=== PATIENT | female | born 1935 | race Caucasian/White ===

== ENCOUNTER 2023-06-15 06:39 | Day surgery (SDC) | payer OTHER, SELFPAY ==
[2023-06-10 14:38] LABS: APTT 28.2 Sec (23.4-35.0); PT 13.4 Sec (11.4-14.6)
[2023-06-15] VITALS (10 sets, daily range): BP systolic 95–146; BP diastolic 47–77
== END 2023-06-15 16:15 | disposition home or self-care (01) ==
LOC: GI 06:39
PROVIDERS: ATTENDING PHYSICIAN Internal Medicine Critical Care Medicine; FAMILY PHYSICIAN Family Medicine
DX: R91.1 Solitary pulmonary nodule (principal); C34.12 Malignant neoplasm of upper lobe, left bronchus or lung; R59.0 Localized enlarged lymph nodes
CPT/HCPCS: 31629; 31628; 31627; 31624; 31654; 31623; 88173; 88305; 36415; 71045; 76000; 81459; 85610; 85730; 88112; 88333; 88341; 88342; 94640; C1887

== ENCOUNTER 2023-06-22 15:15 | Inpatient (IN) | payer OTHER, SELFPAY ==
[2023-06-22] VITALS (10 sets, daily range): BP systolic 100–145; BP diastolic 44–69
--- NOTE | 2023-06-22 08:54 | ED.GENMED ---
History of Present Illness
General
Chief Complaint: Abdominal Pain
Source: patient and spouse
Exam Limitations: none
Time Seen by Provider: 06/22/23 08:38
Nursing documentation reviewed up to this point in time: agreed with
Travel History
Have you had any contact with someone who has COVID-19?: No
Do you have any symptoms of coronavirus? Fever > 100 degrees, chills, cough, shortness of breath, sore throat, loss of taste or smell, muscle aches, or headache?: No
History of Present Illness
History of Present Illness:
87-year-old female presents emergency department due to nausea vomiting and abdominal cramping since 4 AM. She states she vomited about 5 times. There are no aggravating or alleviating factors. She has also felt lightheaded for a long time. She
denies any headache. She was recently diagnosed with lung cancer.
Past History
Past History
ED Past Medical History: Cancer (skin), GERD, HTN and Other (Osteoarthritis); Negative Hypercholesterolemia, IDDM, NIDDM or SD
ED Past Surgical History: Appendectomy, Cholecystectomy, Gynecological (Hysterectomy) and Orthopedic (Shoulder, knee)
Social History
Tobacco: Non-smoker
Alcohol: None
Drug: None
Personal:
Living: with family
Employment: Retired
Family History
Family History: Cancer (Colon Cancer)
Review of Systems
Review of Systems
Allergies reviewed?: Yes
All Other Systems: Not applicable
Constitutional: Reports no symptoms; Denies fever
EENT: Reports no symptoms
Respiratory: Reports no symptoms
Cardiac: Reports no symptoms; Denies chest pain
ABD/GI: Reports abdominal pain, nausea and vomiting
: Reports no symptoms
Musculoskeletal: Reports no symptoms
Skin: Reports no symptoms
Neurological: Reports no symptoms
Endocrine: Reports no symptoms
Hematologic/Lymphatic: Reports no symptoms
Psychiatric: Reports no symptoms
Phy Exam
Physical Exam
Physical Exam:
Physical Exam
General: Afebrile, appears uncomfortable
Neck: supple. no meningeal signs. normal posterior pharynx
Heart: s1/s2 tachycardia, no murmur. equal radial
pulses.
HEENT: Pupils equal round reactive to light, EOMI
Lungs: no acute respiratory distress. clear bilaterally
Abdomen: normal bowel sounds. Diffuse abdominal tenderness no CVAT
Neuro: alert and oriented. no focal neurological deficits cranial nerves II through XII intact
Skin: no rash
Psychiatric: well kept. interactive and cooperative
Extremities: no edema. no calf tenderness. negative homans. good distal pulses
Course
Orders/Labs/Results
Orders:
Orders
06/22/23 08:50
Cardiac Monitoring- Treatment ONCE
IV Insert/Care/Rem.- Treatment PRN
0.9% Sodium Chloride 1000 ml [Nss] 1,000 ml IV BOLUS
Ondansetron Injectable [Zofran] 4 mg IV NOW STA
06/22/23 08:53
Electrocardiogram (*1) Stat
Reason for Study: Abdominal Pain
CT Abd/Pel (IV only)-DH only Urgent
Comment:
Reason For Exam: Epigastric abdominal pain, nausea vomiting
EKG- Treatment ONCE
06/22/23 09:07
COVID-19 Antigen Urgent
Source: Nasal Swab
Complete Blood Count/With Diff Urgent
Comprehensive Metabolic Panel Urgent
Comment: ADD ON
Direct Bilirubin Urgent
Comment: ADD ON
Lipase Urgent
Influenza A+B Rapid Molecular Urgent
MARI Source: Nasal Swab
Specimen Description:
06/22/23 12:34
CT Head W/o Iv Contrast Urgent
Comment:
Reason For Exam: Dizziness, recent lung cancer diagnosis
06/22/23 13:32
Urinalysis Reflex To Culture Urgent
Date Specimen was Collected: 06/22/23
Time Specimen was Collected: 12:42
Urine Microscopic Reflex Cult Urgent
Urine Culture Urgent
MARI Source: U
Specimen Description:
Date Specimen was Collected: 06/22/23
Time Specimen was Collected: 12:42
06/22/23 14:27
Cefepime HCl [Maxipime] 1,000 mg IV NOW STA
06/22/23 14:43
Add On- LAB Routine
Tests Added?: LFTs
06/22/23 15:01
Admit/Transfer Patient As Directed
Co-Sign Provider:
Level of Care: Inpatient admission
Assign to:: Telemetry
Physician / Group: Alison
Diagnosis: Sepsis, UTI
Reason for Telemetry: Arrhythmia
Date to Stop Telemetry: 06/25/23
Time to Stop Telemetry: 11:00
Reason for Hospitalization: IV antibiotics, IV fluids
Expected length of stay greater than two midnights?: Yes
ELOS- Estimated Length of Stay in days: 3
I certify the patient meets the requirements for IP care: Yes
06/22/23 15:02
Code Status As Directed
Resuscitation Status: Full Code
06/22/23 15:08
0.9% Sodium Chloride 500 ml [Nss] 500 ml IV BOLUS
06/22/23 15:13
Blood Culture Stat
MARI Source: Blood/Venous
Specimen Description:
06/25/23 11:00
DC Protocol for Telemetry ONCE
Abnormal Lab Results
06/22/23 06/22/23
09:07 13:32
WBC 21.4 H 10^3/uL
(4.8-10.8)
RDW 15.1 H %
(11.5-14.5)
Abs Immat Gran (auto) 0.2 H 10^3/uL
(0-0.05)
Absolute Neuts (auto) 19.2 H 10^3/uL
(1.4-6.5)
Absolute Lymphs (auto) 0.5 L 10^3/uL
(1.2-3.4)
Absolute Monos (auto) 1.4 H 10^3/uL
(0.1-0.6)
Immature Gran % 1.0 H %
(0-0.5)
Neutrophils % 89.6 H %
(42.2-75.2)
Lymphocytes % 2.2 L %
(20.5-51.1)
Ur Occult Blood Reflex 3+ A
(Negative)
Urine Nitrite (Reflex) Positive A
(Negative)
Leukocyte Esterase Rfl 1+ A
(Negative)
Urine RBC 80-90 A /HPF
(0-2)
Urine WBC (Reflex) 90-100 A /HPF
(0-5)
Urine Bacteria (Reflex) Many A
(Negative)
06/22/23 09:07
Vital Signs
Initial and Last Documented VS:
Initial Vital Signs
Temp Pulse Resp BP Pulse Ox
97.9 F 112 18 145/66 99
06/22/23 08:35 06/22/23 08:35 06/22/23 08:35 06/22/23 08:35 06/22/23 08:35
Last Documented Vital Signs
Temp Pulse Resp BP Pulse Ox
97.9 F 90 19 100/44 93
06/22/23 08:35 06/22/23 15:15 06/22/23 15:15 06/22/23 15:00 06/22/23 15:15
MDM/Problems Addressed
Differential Diagnosis Includes:
Bowel obstruction, diverticulitis, UTI
MDM/Problems Addressed:
87-year-old female with UTI, nausea vomiting. Leukocytosis. IV cefepime given. Admit to hospitalist
Chronic conditions affecting care: HTN
Acute Exacerbation and/or Progression of Chronic Illness: HTN
*Radiology
Radiology exam reviewed: radiology read reviewed (CT abdomen pelvis shows gastroenteritis)
*Pulse Oximetry
Patient hypoxic: no
*EKG
Interpreted by ED Provider?: NA
EKG Intrepretation Date: 06/22/23
EKG Intrepretation Time: 08:59
Interpretation: abnormal
Comparison EKG: changes noted
Heart Rate: 92
Rate: normal
Rhythm: sinus
[place]: normal axis
Interval: normal interval
QRS Pattern: normal QRS
Ischemia: non-specific ST changes
*Highway Traffic Control Technician Interpretation
Rate: normal
Interpretation: normal
Heart Rate: 95
Rhythm: sinus
*Critical Care Note
Total Time (30-74mins, 75-104mins- exclusive of procedures): Not Applicable
ED Attending Note
-
Portions of this chart may have been created with voice recognition software.� Occasional wrong word or��sound alike� substitutions may have occurred due to the inherent limitations of voice recognition software.
Discharge Plan
Departure
Patient Disposition: Admit
Date of Disposition: 06/22/23
Time of Disposition: 14:26
Admit to: Telemetry
Presentation/result/management discussed w/ accepting MD/DO: Hospitalist
Patient with high blood pressure during this ER visit?: No
Condition: Fair
Discharge Problem:
Vomiting
Interventions
Interventions:
*Risk Screen - Suicide Last Done: 06/22/23 08:35
*General Assessment Last Done: 06/22/23 08:35
*Neglect/Abuse Screening Last Done: 06/22/23 08:35
ED- Fall Risk Assessment Last Done: 06/22/23 09:05
*ED COVID-19 Vaccine History Last Done: 06/22/23 08:35
JO-Jxbvpb-Amtqbtjfio Assessment Last Done: 06/22/23 09:05
[2023-06-22] MEDS: ZOFRAN 4 MG IV (09:07)
[2023-06-22] MEDS: NSS 1000 IV ×3 (09:08→23:59)
[2023-06-22 09:26] LABS: % Basophils 0.3 % (0-2); % Eosinophils 0.5 % (0-6); % Lymphocytes 2.2 % (20.5-51.1); % Monocytes 6.4 % (1.7-9.3); % Neutrophils 89.6 % (42.2-75.2); Absolute Basophils 0.1 10^3/uL (0-0.2); Absolute Eosinophils 0.1 10^3/uL (0-0.7); Absolute Immature Granulocytes 0.2 10^3/uL (0-0.05); Absolute Lymphocytes 0.5 10^3/uL (1.2-3.4); Absolute Monocytes 1.4 10^3/uL (0.1-0.6); Absolute Neutrophils 19.2 10^3/uL (1.4-6.5); Hematocrit 44.8 % (37.0-47.0); Hemoglobin 15.3 g/dL (12.0-16.0); Mean Corp Hgb Conc. 34.2 g/dL (33.0-37.0); Mean Corpuscular Hgb 30.3 pg (27.0-31.0); Mean Corpuscular Volume 88.7 fL (81.0-99.0); Mean Platelet Volume 9.5 fL (7.4-10.4); Nucleated Red Blood Cells % 0 %; Platelet Count 303 10^3/uL (130-400); Red Blood Cell Count 5.05 10^6/uL (4.20-5.40); Red Cell Dist. Width 15.1 % (11.5-14.5); White Blood Cell Count 21.4 10^3/uL (4.8-10.8)
[2023-06-22 09:40] LABS: Lipase 217 U/L (23-300)
[2023-06-22 09:48] LABS: COVID-19 Antigen Negative (Negative)
[2023-06-22 13:43] LABS: Urine Albumin Trace (Neg - Trace); Urine Bilirubin Negative (Negative); Urine Character Clear (Clear); Urine Color Yellow; Urine Glucose Negative (Negative); Urine Ketone Negative (Negative); Urine Leukocyte 1+ (Negative); Urine Nitrite Positive (Negative); Urine Occult Blood 3+ (Negative); Urine Specific Gravity 1.015 (<1.030); Urine Urobilinogen Negative (Neg - 1+)
[2023-06-22 13:54] LABS: Urine Mucus Few
[2023-06-22 13:56] LABS: Urine Red Blood Cell 80-90 /HPF (0-2)
[2023-06-22 13:58] LABS: Urine Bacteria Many (Negative); Urine White Cell 90-100 /HPF (0-5)
[2023-06-22] MEDS: MAXIPIME 1000 MG IV (15:01)
--- NOTE | 2023-06-22 15:08 | HPS.HSE ---
Family Physician
-
Family Physician: Didier Godinez Jr.
Chief Complaint
-
Weakness, abdominal discomfort, dysuria, vomiting
History of Present Illness
87-year-old female who was in her usual state of health up until 4:00 in the morning when she developed acute onset of vomiting and abdominal discomfort. Associated chills but denies fevers.
Also noted dysuria. Denies flank pain.
Medical History
Past Medical History
Past Medical History: Reports Other
Additional Past Medical History:
Essential hypertension
GERD
COPD
Gout
CKD 3B
Squamous cell lung cancer -new diagnosis
Past Surgical History: Reports Cholecystectomy, Gynocological and Orthopedic
Social History
Tobacco: Non-smoker
Alcohol: None
Drug: None
Family History
Family History: Not pertinent
Allergies / Home Medications
Allergies reflects when Allergies were last updated in [employer].
Home Medications with original date entered in [employer]
Allergy/Medication List:
Allergies
Allergy/AdvReac Type Severity Reaction Status Date / Time
Cephalosporins Allergy Hives (Pt Verified 06/22/23 08:37
unsure of
allergy).
Tolerated
cefazolin
2020 admis
penicillin G Allergy Hives Verified 06/22/23 08:37
Home Medications
allopurinol 100 mg tablet 200 mg PO DAILY Gout ##0 05/15/14
folic acid 0.8 mg capsule 0.8 mg PO DAILY Supplement ##0 05/15/14
pantoprazole 40 mg tablet,delayed release 40 mg PO DAILY Gastrointestinal Issue 05/15/14
cholecalciferol (vitamin D3) 125 mcg (5,000 unit) tablet (Vitamin D3) 125 mcg PO DAILY Supplement ##0 08/03/20
desvenlafaxine succinate 50 mg tablet,extended release 24 hr 50 mg PO DAILY Mental Health/Anxiety ##0 08/03/20
Focus-Bd 2 tab PO BID Supplement 05/03/23
amlodipine 2.5 mg tablet 2.5 mg PO DAILY Blood Pressure 05/03/23
calcium carbonate 600 mg calcium (1,500 mg) tablet (Calcium) 1,200 mg PO DAILY Supplement 05/03/23
gabapentin 100 mg capsule 100 mg PO DAILY Pain 05/03/23
atorvastatin 10 mg tablet 10 mg PO QPM 06/22/23
vitamin B complex 1 tab PO DAILY 06/22/23
Review of Systems
-
History Source: Patient and Family
A 12 point ROS was completed and negative except as noted: Yes
Constitutional: Reports Fatigue and Chills
Abdomen/GI: Reports Abdominal Pain, Nausea and Vomiting; Denies Diarrhea
: Reports Dysuria; Denies Flank Pain
Physical Exam
Vital Signs
Vital Signs
Temp Pulse Resp BP Pulse Ox
97.9 F 105 26 106/47 92
06/22/23 08:35 06/22/23 12:30 06/22/23 12:30 06/22/23 12:00 06/22/23 12:30
Physical Exam
General: Well Developed, Well Nourished, No Apparent Distress and Comfortable
HEENT: NormoCephalic, Anicteric and Moist mucous membranes
Respiratory: Clear
Cardiac: S1/S2 and Regular Rhythm
GI: Soft, Non Tender and Non Distended
Genito-urinary: Deferred by me
Musculoskeletal: No Clubbing, No Cyanosis and No Edema
Skin: Warm and Dry
Neuro: AO x 3
Hematologic/Lymphatic: No Lymphadenopathy
Psych: Calm
Laboratory Results
-
06/22/23 09:07
06/22/23 09:07
Laboratory Results
Total Bilirubin Cancelled 06/22/23 09:07
AST Cancelled 06/22/23 09:07
ALT Cancelled 06/22/23 09:07
Alkaline Phosphatase Cancelled 06/22/23 09:07
Lipase 217 U/L (23-300) 06/22/23 09:07
Impression/Plan
-
Sepsis -possibly due to UTI, pyelonephritis. Admit to telemetry, IV fluids, IV antibiotics. Await cultures.
Squamous cell lung cancer -recent diagnosis. Left upper lobe mass noted on CT. Underwent bronchoscopy last week. Follow-up with oncology, Dr. Ferreira. She is scheduled for an outpatient PET scan soon.
Essential hypertension - stable.
Gout -continue allopurinol.
COPD without exacerbation
GERD
CKD 3B -stable.
Hyperlipidemia -continue atorvastatin.
Full code
updated at the bedside
[2023-06-22 16:34] LABS: Blood Urea Nitrogen 24 mg/dl (7-17); Calcium 9.5 mg/dl (8.4-10.2); Carbon Dioxide 24 mmol/L (22-30); Chloride 105 mmol/L (98-107); Estimated Creatinine Clearance 37 ml/min; Glucose 143 mg/dl (70-99); Sodium 137 mmol/L (135-145); eGFR 55.21
[2023-06-22] MEDS: NSS 500 IV (17:01)
[2023-06-22] MEDS: LOVENOX 30 MG SC (17:22)
[2023-06-22] MEDS: LIPITOR 10 MG PO (17:23)
[2023-06-22 17:30] LABS: ALT (SGPT) 15 U/L (0-35); AST (SGOT) 22 U/L (14-36); Albumin 3.4 g/dl (3.5-5.0); Alkaline Phosphatase 70 U/L (38-126); Direct Bilirubin 0.4 mg/dl (0.0-0.4); Total Bilirubin 1.1 mg/dl (0.2-1.3); Total Protein 5.7 g/dl (6.3-8.2)
[2023-06-22] MEDS: Pyridium 100 MG PO (20:26)
[2023-06-22 22:12] LABS: Glucose - Point of Care 104 mg/dl (70-99)
[2023-06-23] VITALS (9 sets, daily range): BP systolic 108–149; BP diastolic 50–73; PULSE 72–83; O2SAT 95
[2023-06-23] MEDS: MAXIPIME 1000 MG IV ×2 (03:46→17:21)
[2023-06-23] MEDS: STERILE WATER FOR INJECTION 10 ML IV ×2 (03:47→17:23)
[2023-06-23] MEDS: FOLVITE 0.800000000000000044 MG PO (07:28)
[2023-06-23] MEDS: ZYLOPRIM 200 MG PO (07:28)
[2023-06-23] MEDS: PROTONIX 40 MG PO (07:28)
[2023-06-23] MEDS: NEURONTIN 100 MG PO (07:28)
[2023-06-23] MEDS: OSCAL CAL 500 1000 MG PO (07:28)
[2023-06-23] MEDS: VITAMIN D3 (cholecalciferol) 125 MCG PO (07:29)
[2023-06-23 08:19] LABS: % Basophils 0.3 % (0-2); % Eosinophils 2.1 % (0-6); % Immature Granulocytes 0.7 % (0-0.5); % Lymphocytes 11.7 % (20.5-51.1); % Monocytes 7.7 % (1.7-9.3); % Neutrophils 77.5 % (42.2-75.2); Absolute Eosinophils 0.3 10^3/uL (0-0.7); Absolute Immature Granulocytes 0.1 10^3/uL (0-0.05); Absolute Lymphocytes 1.4 10^3/uL (1.2-3.4); Absolute Monocytes 0.9 10^3/uL (0.1-0.6); Absolute Neutrophils 9.4 10^3/uL (1.4-6.5); Hematocrit 36.7 % (37.0-47.0); Hemoglobin 12.5 g/dL (12.0-16.0); Mean Corp Hgb Conc. 34.1 g/dL (33.0-37.0); Mean Corpuscular Hgb 30.9 pg (27.0-31.0); Mean Corpuscular Volume 90.8 fL (81.0-99.0); Mean Platelet Volume 9.5 fL (7.4-10.4); Nucleated Red Blood Cells % 0 %; Platelet Count 239 10^3/uL (130-400); Red Blood Cell Count 4.04 10^6/uL (4.20-5.40); Red Cell Dist. Width 15.4 % (11.5-14.5); White Blood Cell Count 12.2 10^3/uL (4.8-10.8)
--- NOTE | 2023-06-23 10:23 | PTOTSP ---
PATIENT ABLE TO FUNCTION INDEPENDENTLY ON LEVEL SURFACES WELL ELEVATIONS. NOTED TO BE SLIGHTLY SHORT OF BREATH WITH MOBILITY WITH ROOM AIR SPO2-93%. PATIENT FEELS IF SHE IS FUNCTIONING AT HER BASELINE. ENCOURAGED PATIENT TO AMBULATE IN
HALLS WHILE HERE TO MAINTAIN MOBILITY. WILL DISCHARGE FROM P.T. SERVICES.
--- NOTE | 2023-06-23 11:49 | W.PN.HOSP.TC ---
Today's Communication/Plan
-
Continue antibiotics
Check orthostatics
Assessment / Plan
Assessment / Plan
Gen-AAOx3, NAD, obese
HEENT-NC, AT, anicteric, clear oral mm
Neck-supple
CV-reg, no M, +S1/S2
Lungs-clear B/L
Abd-soft, NT, ND
Ext-no edema
Musculoskeletal-no cyanosis, clubbing
Skin-warm and dry
Neuro-grossly non-focal
Psych-calm, cooperative
Sepsis -possibly due to UTI, pyelonephritis.� Improving clinically. WBC is coming down. Afebrile. Urine culture shows greater than 100,000 E. coli. Sensitivity pending. Blood culture pending. Continue cefepime for now.
Vertigo -unclear if her symptoms are truly due to vertigo versus lightheadedness. Check orthostatics.
Squamous cell lung cancer -recent diagnosis.� Left upper lobe mass noted on CT.� Underwent bronchoscopy last week.� Follow-up with oncology, Dr. Ferreira.� She is scheduled for an outpatient PET scan soon.
Essential hypertension - stable.
Gout -continue allopurinol.
COPD without exacerbation
GERD
CKD 3B -stable.
Hyperlipidemia -continue atorvastatin.
Full code
Anticipated Discharge: Within 24 hours
Subjective/Interval History
-
Date of Service: June 23, 2023
Patient seen/examined. Feels better today. Complaining of mild vertigo.
Objective Data
-
Labs:
Laboratory Results
06/23/23
07:17
WBC 12.2 H
Hgb 12.5
Hct 36.7 L
Plt Count 239 D
Vital Signs:
Vital Signs
Temp Pulse Resp BP Pulse Ox
97.3 F 68 18 109/57 95
06/23/23 11:00 06/23/23 11:00 06/23/23 11:00 06/23/23 11:00 06/23/23 11:00
I&O
06/22/23 06/23/23 06/24/23
06:59 06:59 06:59
Intake Total 1480 / 1480
Balance 1480 / 1480
Review of Systems
-
History Source: Patient
All other systems: Reviewed and negative
--- NOTE | 2023-06-23 14:23 | CM ---
Reviewed chart, met with patient and her spouse who was at bedside to obtain information for assessment. Patient stated that she lives with her spouse in a two story home, first floor set up, with two steps to enter. She described herself as
independent with all her ADLs, personal care, bathing and dressing but relayed that she is slow with doing these things.
Patient uses a rollator to assist with her ambulation. She has grab bars in the shower as well as a shower chair.
Patient's spouse does all the silk screen cutter, cooking, cleaning and laundry.
Patient has never had VN services. She has not been to a SNF in the past. Patient expressed that she goes to outpatient therapy and is current.
Patient has a prescription plan and uses [facility] in [place] for all of her medications. She stated that her PCP is Dr. Tiki Muniz.
Patient's spouse and patient stated that they feel that patient may need some rehab prior to returning home and if indicated she wants to go to [facility] or [facility].
Reviewed PT/OT however both services signed off stating that patient is at baseline. Patient's spouse stated that he was advised that patient will need SNF however he is unsure from whom he received this information. Will continue to echo
indications made on behalf of medical staff. Will check to determine if patient may be agreeable to VN services.
Plan: Case management will continue to follow and assist with discharge planning. Home vrs home with VN.
[2023-06-23] MEDS: ANTIVERT 12.5 MG PO (17:21)
[2023-06-23] MEDS: LIPITOR 10 MG PO (17:24)
[2023-06-23] MEDS: LOVENOX 30 MG SC (17:24)
[2023-06-23] MEDS: NON-FORMULARY ITEM PO (20:04)
[2023-06-23] MEDS: ZOFRAN 4 MG IV (20:20)
[2023-06-24 03:12] VITALS: BP 111/47
[2023-06-24] MEDS: MAXIPIME 1000 MG IV (04:03)
[2023-06-24] MEDS: STERILE WATER FOR INJECTION 10 ML IV (04:04)
[2023-06-24 07:00] VITALS: BP 144/65
[2023-06-24] MEDS: PROTONIX 40 MG PO (07:20)
[2023-06-24] MEDS: Pyridium 100 MG PO (07:20)
[2023-06-24] MEDS: NEURONTIN 100 MG PO (07:21)
[2023-06-24] MEDS: FOLVITE 0.800000000000000044 MG PO (07:21)
[2023-06-24] MEDS: ZYLOPRIM 200 MG PO (07:21)
[2023-06-24] MEDS: NON-FORMULARY ITEM 50 MG PO (07:21)
[2023-06-24] MEDS: VITAMIN D3 (cholecalciferol) 125 MCG PO (07:21)
[2023-06-24] MEDS: ANTIVERT 12.5 MG PO (07:21)
[2023-06-24] MEDS: OSCAL CAL 500 1000 MG PO (07:21)
[2023-06-24 07:22] LABS: % Basophils 0.4 % (0-2); % Eosinophils 4.7 % (0-6); % Immature Granulocytes 0.5 % (0-0.5); % Lymphocytes 16.6 % (20.5-51.1); % Monocytes 8.9 % (1.7-9.3); % Neutrophils 68.9 % (42.2-75.2); Absolute Eosinophils 0.5 10^3/uL (0-0.7); Absolute Immature Granulocytes 0.1 10^3/uL (0-0.05); Absolute Lymphocytes 1.6 10^3/uL (1.2-3.4); Absolute Monocytes 0.9 10^3/uL (0.1-0.6); Absolute Neutrophils 6.6 10^3/uL (1.4-6.5); Hematocrit 39.6 % (37.0-47.0); Hemoglobin 13.2 g/dL (12.0-16.0); Mean Corp Hgb Conc. 33.3 g/dL (33.0-37.0); Mean Corpuscular Hgb 30.4 pg (27.0-31.0); Mean Corpuscular Volume 91.2 fL (81.0-99.0); Mean Platelet Volume 9.3 fL (7.4-10.4); Nucleated Red Blood Cells % 0 %; Platelet Count 250 10^3/uL (130-400); Red Blood Cell Count 4.34 10^6/uL (4.20-5.40); Red Cell Dist. Width 15.1 % (11.5-14.5); White Blood Cell Count 9.6 10^3/uL (4.8-10.8)
[2023-06-24 11:00] VITALS: BP 130/73
--- NOTE | 2023-06-24 11:14 | W.PN.HOSP.TC ---
Today's Communication/Plan
-
Discharge
Assessment / Plan
Assessment / Plan
Gen-AAOx3, NAD, obese
HEENT-NC, AT, anicteric, clear oral mm
Neck-supple
CV-reg, no M, +S1/S2
Lungs-clear B/L
Abd-soft, NT, ND
Ext-no edema
Musculoskeletal-no cyanosis, clubbing
Skin-warm and dry
Neuro-grossly non-focal
Psych-calm, cooperative
Sepsis -possibly due to UTI, pyelonephritis.� Improving clinically. WBC now normal. Afebrile. Urine culture shows greater than 100,000 E. coli. Blood culture negative so far. Can change to oral antibiotics and discharge this afternoon.
Recommend outpatient follow-up with urology. Discussed with patient.
Vertigo -possibly BPPV. Recommend outpatient vestibular rehab, discussed with patient. Prescription provided. PT to assess prior to discharge. Meclizine as needed.
Squamous cell lung cancer -recent diagnosis.� Left upper lobe mass noted on CT.� Underwent bronchoscopy last week.� Follow-up with oncology, Dr. Ferreira.� She is scheduled for an outpatient PET scan soon.
Essential hypertension - stable.
Gout -continue allopurinol.
COPD without exacerbation
GERD
CKD 3B -stable.
Hyperlipidemia -continue atorvastatin.
Full code
Dispo -anticipate discharge home this afternoon. Outpatient follow-up.
32-minute spent in discharge process.
Anticipated Discharge: Today
Subjective/Interval History
-
Date of Service: June 24, 2023
Patient seen and examined. Complaining of mild vertigo this morning.
Objective Data
-
Labs:
Laboratory Results
06/24/23
06:53
WBC 9.6
Hgb 13.2
Hct 39.6
Plt Count 250
Vital Signs:
Vital Signs
Temp Pulse Resp BP Pulse Ox
97.9 F 67 16 144/65 95
06/24/23 07:00 06/24/23 07:00 06/24/23 07:00 06/24/23 07:00 06/24/23 07:00
I&O
06/23/23 06/24/23 06/25/23
06:59 06:59 06:59
Intake Total 1480 / 1480 1080 / 1080
Balance 1480 / 1480 1080 / 1080
Review of Systems
-
History Source: Patient
All other systems: Reviewed and negative
--- NOTE | 2023-06-24 11:21 | W.DS.TRANS ---
DC Summary - [employer]
-
Discharge Instructions:
Discharge Diagnosis/Procedures Sepsis, UTI, vertigo
Diet Regular
Activity As tolerated
Driving Restrictions As prior to admission
Bathing Restrictions None
Instructions:
Stand-Alone Forms:
Changes to Home Medications: No
Discharge Medications:
DC Medications w/original date entered in [employer]
allopurinol 100 mg tablet 200 mg PO DAILY Gout ##0 05/15/14
folic acid 0.8 mg capsule 0.8 mg PO DAILY Supplement ##0 05/15/14
pantoprazole 40 mg tablet,delayed release 40 mg PO DAILY Gastrointestinal Issue 05/15/14
cholecalciferol (vitamin D3) 125 mcg (5,000 unit) tablet (Vitamin D3) 125 mcg PO DAILY Supplement ##0 08/03/20
desvenlafaxine succinate 50 mg tablet,extended release 24 hr 50 mg PO DAILY Mental Health/Anxiety ##0 08/03/20
Focus-Bd 1 tab PO BID Supplement 05/03/23
amlodipine 2.5 mg tablet 2.5 mg PO DAILY Blood Pressure 05/03/23
calcium carbonate 600 mg calcium (1,500 mg) tablet (Calcium) 1,200 mg PO DAILY Supplement 05/03/23
gabapentin 100 mg capsule 100 mg PO DAILY Pain 05/03/23
atorvastatin 10 mg tablet 10 mg PO QPM 06/22/23
vitamin B complex 1 tab PO DAILY Supplement 06/22/23
cefadroxil 1 gram tablet 1,000 mg PO BID 10 days #20 tabs 06/24/23
meclizine 12.5 mg tablet 12.5 mg PO Q8HPRN PRN vertigo #20 tabs 06/24/23
phenazopyridine 100 mg tablet 100 mg PO TIDPRN PRN pain with urination #15 tabs 06/24/23
Home Medication Changes
Pending Results: No
--- NOTE | 2023-06-24 14:55 | CM ---
Reviewed chart, met with patient to obtain information for assessment. Patient [place]. Patient stated that she lives in a single townhouse with three steps to enter with her spouse. She described herself as independent with all her ADLs, personal care,
dressing, bathing, toileting and ambulates without the use of an assistive device. She does have a walker that she obtained after TKR but does not need it.
Patient denied any DME in her home.
She drives and can get her appointments and does her own shopping.
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
She goes to outpatient therapy and transports herself. She has had VN in the past through but is not current. She has also been to [facility] in the past.
Patient stated that she does not feel that she will have any needs at the time of discharge and will be able to return home no needs.
Plan: Case managment will continue to follow and assist with discharge planning. Patient would like to return home when medically cleared for discharge. Will watch for needs.
== END 2023-06-24 14:59 | disposition home or self-care (01) | DRG 872 ==
LOC: 3 WEST ACU 15:15
PROVIDERS: ADMITTING PHYSICIAN Hospitalist; EMERGENCY PHYSICIAN Emergency Medicine; FAMILY PHYSICIAN Family Medicine
DX: A41.51 Sepsis due to Escherichia coli [E. coli] (principal); C34.90 Malignant neoplasm of unspecified part of unspecified bronchus or lung; N39.0 Urinary tract infection, site not specified; N18.32 Chronic kidney disease, stage 3b; I12.9 Hypertensive chronic kidney disease with stage 1 through stage 4 chronic kidney disease, or unspecified chronic kidney disease; E78.5 Hyperlipidemia, unspecified; H81.10 Benign paroxysmal vertigo, unspecified ear; K21.9 Gastro-esophageal reflux disease without esophagitis; M19.90 Unspecified osteoarthritis, unspecified site; J44.9 Chronic obstructive pulmonary disease, unspecified; M10.9 Gout, unspecified; Z85.828 Personal history of other malignant neoplasm of skin; Z11.52 Encounter for screening for COVID-19; Z90.49 Acquired absence of other specified parts of digestive tract; Z90.710 Acquired absence of both cervix and uterus; Z88.1 Allergy status to other antibiotic agents; Z88.0 Allergy status to penicillin
CPT/HCPCS: 70450; 74177; 80048; 80076; 81003; 81015; 82962; 83690; 85025; 87040; 87086; 87088; 87186; 87502; 87811; 93005; 96361; 96374; 96375; 97161; 97162; 97165; 99285; Q9967

== ENCOUNTER → 2023-07-01 10:05 | Outpatient (REF) | payer OTHER, SELFPAY | LOC: PET 10:05 | PROVIDERS: ATTENDING PHYSICIAN Internal Medicine Critical Care Medicine | DX: C34.12 Malignant neoplasm of upper lobe, left bronchus or lung (principal) | CPT/HCPCS: 78815; A9552 ==

== ENCOUNTER → 2023-07-14 07:17 | Outpatient (REF) | payer OTHER, SELFPAY | LOC: MRI 07:17 | PROVIDERS: ATTENDING PHYSICIAN Internal Medicine Hematology & Oncology; FAMILY PHYSICIAN Family Medicine | DX: C34.12 Malignant neoplasm of upper lobe, left bronchus or lung (principal) | CPT/HCPCS: 70553; A9575 ==

== ENCOUNTER 2023-10-16 06:09 | Day surgery (SDC) | payer OTHER, SELFPAY ==
[2023-10-16 07:44] VITALS: BMI 27.7
[2023-10-16 07:53] VITALS: BP 146/75
[2023-10-16 07:54] VITALS: BMI 27.7
[2023-10-16 10:45] VITALS: BP 117/49
[2023-10-16 11:00] VITALS: BP 122/67
[2023-10-16 11:15] VITALS: BP 132/55
== END 2023-10-16 11:32 | disposition home or self-care (01) ==
LOC: GI 06:09
PROVIDERS: ATTENDING PHYSICIAN Internal Medicine Gastroenterology
DX: Z12.11 Encounter for screening for malignant neoplasm of colon (principal); D12.5 Benign neoplasm of sigmoid colon; K57.30 Diverticulosis of large intestine without perforation or abscess without bleeding; K64.0 First degree hemorrhoids; Z86.010 Personal history of colon polyps; Z98.890 Other specified postprocedural states
CPT/HCPCS: 45390; 88305

== ENCOUNTER → 2023-12-07 11:36 | Outpatient (REF) | payer OTHER, SELFPAY | LOC: HWRAD 11:36 | PROVIDERS: ATTENDING PHYSICIAN Internal Medicine Hematology & Oncology; FAMILY PHYSICIAN Family Medicine | DX: C34.12 Malignant neoplasm of upper lobe, left bronchus or lung (principal) | CPT/HCPCS: 71260; Q9967 ==

== ENCOUNTER → 2024-04-01 13:50 | Outpatient (REF) | payer OTHER, SELFPAY | LOC: RAD 13:50 | PROVIDERS: ATTENDING PHYSICIAN Family Medicine | DX: E78.00 Pure hypercholesterolemia, unspecified (principal); M62.89 Other specified disorders of muscle | CPT/HCPCS: 93922; 93925 ==

== ENCOUNTER 2024-04-02 13:23 | Emergency (ER) | payer OTHER, SELFPAY ==
[2024-04-02] VITALS (10 sets, daily range): BP systolic 108–155; BP diastolic 52–82; PULSE 84–92; BMI 32.3
[2024-04-02 14:04] LABS: % Basophils 0.5 % (0-2); % Eosinophils 1.9 % (0-6); % Immature Granulocytes 0.6 % (0-0.5); % Lymphocytes 13.1 % (20.5-51.1); % Monocytes 9.3 % (1.7-9.3); % Neutrophils 74.6 % (42.2-75.2); Absolute Basophils 0.1 10^3/uL (0-0.2); Absolute Eosinophils 0.2 10^3/uL (0-0.7); Absolute Immature Granulocytes 0.1 10^3/uL (0-0.05); Absolute Lymphocytes 1.3 10^3/uL (1.2-3.4); Absolute Monocytes 0.9 10^3/uL (0.1-0.6); Absolute Neutrophils 7.5 10^3/uL (1.4-6.5); Hematocrit 43.5 % (37.0-47.0); Hemoglobin 14.6 g/dL (12.0-16.0); Mean Corp Hgb Conc. 33.6 g/dL (33.0-37.0); Mean Corpuscular Hgb 30.4 pg (27.0-31.0); Mean Corpuscular Volume 90.6 fL (81.0-99.0); Mean Platelet Volume 9.3 fL (7.4-10.4); Nucleated Red Blood Cells % 0 %; Platelet Count 265 10^3/uL (130-400); Red Cell Dist. Width 14.2 % (11.5-14.5); White Blood Cell Count 10.1 10^3/uL (4.8-10.8)
[2024-04-02 14:15] LABS: ALT (SGPT) 21 U/L (0-35); AST (SGOT) 30 U/L (14-36); Albumin 4.5 g/dl (3.5-5.0); Alkaline Phosphatase 73 U/L (38-126); Blood Urea Nitrogen 30 mg/dl (7-17); Calcium 10.1 mg/dl (8.4-10.2); Carbon Dioxide 27 mmol/L (22-30); Chloride 99 mmol/L (98-107); Estimated Creatinine Clearance 35 ml/min; Glucose 99 mg/dl (70-99); Potassium 3.7 mmol/L (3.5-5.1); Sodium 139 mmol/L (135-145); Total Bilirubin 0.9 mg/dl (0.2-1.3); Total Protein 6.9 g/dl (6.3-8.2); eGFR 48.94
[2024-04-02 14:27] LABS: Troponin I < 0.012 ng/ml
[2024-04-02 17:49] LABS: Troponin I < 0.012 ng/ml
--- NOTE | 2024-04-02 17:59 | ED.GENMED ---
History of Present Illness
General
Chief Complaint: Weakness
Source: patient and spouse
Exam Limitations: none
Time Seen by Provider: 04/02/24 13:52
History of Present Illness
History of Present Illness:
This an 88-year-old female presents after she profoundly became weak. The patient states that this has been ongoing for several weeks. Patient states today it seemed a little worse. She did get an outpatient ultrasound of her legs recently also.
Patient now feels better. She states she is very active and that this occurs when she is walking. She denies any associated chest pain or shortness of breath. No palpitations. Currently feels better but just overall little bit weak.
Past History
Past History
ED Past Medical History: Cancer (skin), GERD, HTN and Other (Osteoarthritis); Negative Hypercholesterolemia, IDDM, NIDDM or NC
ED Past Surgical History: Appendectomy, Cholecystectomy, Gynecological (Hysterectomy) and Orthopedic (Shoulder, knee)
Social History
Tobacco: Non-smoker
Alcohol: None
Drug: None
Personal:
Living: with family
Employment: Retired
Family History
Family History: Cancer (Colon Cancer)
Phy Exam
Physical Exam
Physical Exam:
CONSTITUTIONAL Patient alert and oriented to person, place and time. Well-appearing. Vital signs reviewed.
HEAD atraumatic, normocephalic.
EYES eyelids normal to inspection, Extraocular muscles intact, Conjunctiva normal, Sclera normal.
NECK normal range of motion, Trachea midline, no jugular venous distention.
RESPIRATORY CHEST No respiratory distress noted, Chest expansion equal, Bilateral breath sounds clear.
CARDIOVASCULAR regular rate and rhythm, systolic ejection murmur.
ABDOMEN abdomen nontender, Bowel sounds normal. No distention.
BACK normal inspection, no obvious deformities
UPPER EXTREMITY range of motion normal, Motor strength normal, no cyanosis, no edema.
LOWER EXTREMITY range of motion normal, Motor strength normal, no cyanosis, no edema. Feet are warm and well-perfused. She does have spider veins to her feet bilaterally but no cyanosis
NEURO Speech normal, No focal motor deficits, [place] coma scale 15, Memory normal, Cranial Nerves intact to screening exam.
SKIN skin warm, dry, and normal in color.
Course
Orders/Labs/Results
Orders:
Orders
04/02/24 13:24
EKG [Electrocardiogram (*1)] Urgent
Reason for Study: Fatigue / Weakness
04/02/24 13:25
EKG- Treatment ONCE
04/02/24 13:54
CMP [Comprehensive Metabolic Panel] Urgent
Complete Blood Count/With Diff Urgent
Troponin I Urgent
04/02/24 14:12
Electrocardiogram (*1) Stat
Reason for Study: Other
Other Reason for Exam: chest pain
EKG- Treatment ONCE
04/02/24 14:27
Orthostatic VS- Treatment ONCE
04/02/24 17:21
Troponin I Urgent
Abnormal Lab Results
04/02/24
13:54
Abs Immat Gran (auto) 0.1 H 10^3/uL
(0-0.05)
Absolute Neuts (auto) 7.5 H 10^3/uL
(1.4-6.5)
Absolute Monos (auto) 0.9 H 10^3/uL
(0.1-0.6)
Immature Gran % 0.6 H %
(0-0.5)
Lymphocytes % 13.1 L %
(20.5-51.1)
BUN 30 H mg/dl
(7-17)
Creatinine 1.1 H mg/dL
(0.6-1.0)
04/02/24 13:54
04/02/24 13:54
Vital Signs
Initial and Last Documented VS:
Initial Vital Signs
Temp Pulse Resp BP Pulse Ox
98.4 F 74 18 155/67 95
04/02/24 13:30 04/02/24 13:30 04/02/24 13:30 04/02/24 13:30 04/02/24 13:30
Last Documented Vital Signs
Temp Pulse Resp BP Pulse Ox
98.4 F 69 10 129/52 92
04/02/24 13:30 04/02/24 16:45 04/02/24 16:45 04/02/24 16:00 04/02/24 14:39
MDM/Problems Addressed
Differential Diagnosis Includes:
Valvulopathy, ACS, dehydration, electrolyte imbalance, stroke
MDM/Problems Addressed:
Weakness
*Pulse Oximetry
Patient hypoxic: no
*EKG
Interpreted by ED Provider?: Yes
Interpretation: abnormal
Rate: normal
Rhythm: sinus
[place]: normal axis
Ischemia: no ischemia
*[employer] [address] [employer] [address] Interpretation
Rate: normal
Interpretation: normal
Rhythm: sinus
*Critical Care Note
Total Time (30-74mins, 75-104mins- exclusive of procedures): Not Applicable
Data Reviewed
Source: patient and spouse
Further Testing Considered But Not Given:
Consider CTA but patient with no hypoxia or chest pain
Patient Management
Escalation/DeEscalation of care consider admission/obs:
Patient appears well. May need follow-up with PCP. She does have a murmur and may need further workup. Patient states she has had a murmur. Certainly aortic stenosis is possible. Okay for discharge for outpatient follow-up. Otherwise
well-appearing and feels better
ED Attending Note
-
Portions of this chart may have been created with voice recognition software.� Occasional wrong word or��sound alike� substitutions may have occurred due to the inherent limitations of voice recognition software.
Discharge Plan
Departure
Patient Disposition: Home (Routine Discharge)
Date of Disposition: 04/02/24
Time of Disposition: 17:59
Patient with high blood pressure during this ER visit?: No
Discharge Problem:
Weakness
Instructions: Generalized Weakness (DC)
Prescriptions:
No Action
allopurinol 100 mg Tablet
200 mg PO DAILY Qty: 0
pantoprazole 40 MG tablet,delayed release (DR/EC)
40 mg PO DAILY
folic acid 0.8 mg Capsule
0.8 mg PO DAILY Qty: 0
desvenlafaxine succinate 50 mg Tablet Extended Release 24 Hr
50 mg PO DAILY Qty: 0
cholecalciferol (vitamin D3) [Vitamin D3] 125 mcg (5,000 unit) Tablet
125 mcg PO DAILY Qty: 0
amlodipine 2.5 mg tablet
2.5 mg PO DAILY
calcium carbonate [Calcium 600] 600 mg calcium (1,500 mg) Tablet
1,200 mg PO DAILY
Focus-Bd
1 tab PO DAILY
potassium chloride [Klor-Con] 20 mEq Packet
20 meq PO BID
furosemide 80 mg Tablet
80 mg PO DAILY
Sutab 1.479-0.188- 0.225 gram Tablet
0 tab PO PER PKG DIR
atorvastatin 10 mg Tablet
10 mg PO QPM
vitamin B complex Tablet
1 tab PO DAILY
Referrals:
Didier Godinez Jr., [Family Provider] -
Activity Restrictions/Additional Instructions:
Please follow-up with your doctor in the next 3 to 5 days. Return immediately for worsening symptoms, chest pain, shortness of breath, palpitations, fevers or any other concerns. Please take 81 mg of aspirin daily.
Interventions
Interventions:
*Risk Screen - Suicide Last Done: 04/02/24 13:30
*General Assessment Last Done: 04/02/24 13:30
*Neglect/Abuse Screening Last Done: 04/02/24 13:30
ED- Fall Risk Assessment Last Done: 04/02/24 14:21
*ED COVID-19 Vaccine History Last Done: 04/02/24 13:43
ED- Cardiac Assessment Last Done: 04/02/24 13:43
ED- Neurological Assessment Last Done: 04/02/24 13:43
ED- Pulmonary Assessment Last Done: 04/02/24 13:43
Discharge Date and Time
Print Language: KITTITIAN
== END 2024-04-02 18:22 | disposition home or self-care (01) ==
LOC: EMR 13:23
PROVIDERS: EMERGENCY PHYSICIAN Emergency Medicine; FAMILY PHYSICIAN Family Medicine
DX: R53.1 Weakness (principal); K21.9 Gastro-esophageal reflux disease without esophagitis; I10 Essential (primary) hypertension; Z85.828 Personal history of other malignant neoplasm of skin; Z90.49 Acquired absence of other specified parts of digestive tract; Z90.710 Acquired absence of both cervix and uterus; Z80.0 Family history of malignant neoplasm of digestive organs
CPT/HCPCS: 99284; 80053; 84484; 85025; 93005

== ENCOUNTER → 2024-04-11 13:51 | Outpatient (REF) | payer OTHER, SELFPAY | LOC: HWRCS 13:51 | PROVIDERS: ATTENDING PHYSICIAN Nurse Practitioner Adult Health | DX: R01.1 Cardiac murmur, unspecified (principal) | CPT/HCPCS: 93306 ==

== ENCOUNTER → 2024-06-13 14:10 | Outpatient (REF) | payer OTHER, SELFPAY | LOC: HWWDC 14:10 | PROVIDERS: ATTENDING PHYSICIAN Family Medicine | DX: Z12.31 Encounter for screening mammogram for malignant neoplasm of breast (principal) | CPT/HCPCS: 77063; 77067 ==

== ENCOUNTER → 2024-06-16 14:18 | Outpatient (REF) | payer OTHER, SELFPAY | LOC: RAD 14:18 | PROVIDERS: ATTENDING PHYSICIAN Internal Medicine Hematology & Oncology; FAMILY PHYSICIAN Family Medicine | DX: C34.12 Malignant neoplasm of upper lobe, left bronchus or lung (principal) | CPT/HCPCS: 71260; Q9967 ==

== ENCOUNTER 2024-06-17 14:58 | Outpatient (RCR) | payer OTHER, SELFPAY | END 2024-06-17 23:59 | disposition home or self-care (01) | LOC: CRHB 14:58 | PROVIDERS: ATTENDING PHYSICIAN Surgery Vascular Surgery | DX: I70.213 Atherosclerosis of native arteries of extremities with intermittent claudication, bilateral legs (principal) | CPT/HCPCS: 93668 ==

== ENCOUNTER 2024-06-29 15:06 | Outpatient (RCR) | payer OTHER, SELFPAY | END 2024-06-29 23:59 | disposition home or self-care (01) | LOC: CRHB 15:06 | PROVIDERS: ATTENDING PHYSICIAN Surgery Vascular Surgery | DX: I70.213 Atherosclerosis of native arteries of extremities with intermittent claudication, bilateral legs (principal) | CPT/HCPCS: 93668 ==

== ENCOUNTER → 2024-08-04 16:30 | Outpatient (REF) | payer OTHER, SELFPAY | LOC: RAD 16:30 | PROVIDERS: ATTENDING PHYSICIAN Surgery Vascular Surgery; FAMILY PHYSICIAN Family Medicine | DX: I73.9 Peripheral vascular disease, unspecified (principal) | CPT/HCPCS: 75635; Q9967 ==

== ENCOUNTER → 2024-08-17 11:38 | Outpatient (REF) | payer OTHER, SELFPAY | LOC: HWRAD 11:38 | PROVIDERS: ATTENDING PHYSICIAN Internal Medicine Critical Care Medicine; FAMILY PHYSICIAN Family Medicine | DX: R91.1 Solitary pulmonary nodule (principal) | CPT/HCPCS: 71250 ==

== ENCOUNTER 2024-08-31 06:33 | Day surgery (SDC) | payer OTHER, SELFPAY ==
[2024-08-25 11:59] LABS: INR 0.92; PT 12.9 Sec (11.4-14.6)
[2024-08-25 12:00] LABS: APTT 28.4 Sec (23.4-35.0)
[2024-08-25 14:21] VITALS: BMI 28.1
[2024-08-31] VITALS (8 sets, daily range): BP systolic 92–140; BP diastolic 54–69; BMI 28.0
== END 2024-08-31 10:18 | disposition home or self-care (01) ==
LOC: GI 06:33
PROVIDERS: ATTENDING PHYSICIAN Internal Medicine Critical Care Medicine; FAMILY PHYSICIAN Family Medicine
DX: R91.8 Other nonspecific abnormal finding of lung field (principal); C34.12 Malignant neoplasm of upper lobe, left bronchus or lung
CPT/HCPCS: 31625; 31624; 31623; 31627; 31654; 88173; 88305; 36415; 71045; 76000; 85610; 85730; 87015; 87070; 87102; 87116; 87205; 88112; 88341; 88342; 93005; 94640; C1887

== ENCOUNTER → 2024-09-06 16:31 | Outpatient (REF) | payer OTHER, SELFPAY | LOC: RAD 16:31 | PROVIDERS: ATTENDING PHYSICIAN Internal Medicine Critical Care Medicine; FAMILY PHYSICIAN Family Medicine | DX: R07.89 Other chest pain (principal) | CPT/HCPCS: 71046 ==

== ENCOUNTER 2024-10-21 11:22 | Emergency (ER) | payer OTHER, SELFPAY ==
[2024-10-21 11:25] VITALS: BP 153/81
[2024-10-21 13:28] VITALS: BMI 27.2
[2024-10-21 13:57] LABS: % Basophils 0.2 % (0-2); % Immature Granulocytes 0.5 % (0-0.5); % Lymphocytes 5.5 % (20.5-51.1); % Monocytes 0.7 % (1.7-9.3); % Neutrophils 93.1 % (42.2-75.2); Absolute Immature Granulocytes 0.1 10^3/uL (0-0.05); Absolute Lymphocytes 0.5 10^3/uL (1.2-3.4); Absolute Monocytes 0.1 10^3/uL (0.1-0.6); Absolute Neutrophils 8.7 10^3/uL (1.4-6.5); Hematocrit 43.6 % (37.0-47.0); Hemoglobin 14.7 g/dL (12.0-16.0); Mean Corp Hgb Conc. 33.7 g/dL (33.0-37.0); Mean Corpuscular Hgb 28.9 pg (27.0-31.0); Mean Corpuscular Volume 85.7 fL (81.0-99.0); Mean Platelet Volume 9.2 fL (7.4-10.4); Nucleated Red Blood Cells % 0 %; Platelet Count 325 10^3/uL (130-400); Red Blood Cell Count 5.09 10^6/uL (4.20-5.40); Red Cell Dist. Width 14.9 % (11.5-14.5); White Blood Cell Count 9.4 10^3/uL (4.8-10.8)
--- NOTE | 2024-10-21 14:00 | EDRN ---
Pt will be moved to room #[address] w/ report given to Khalida GIBSON at this time.
[2024-10-21 14:16] LABS: Blood Urea Nitrogen 36 mg/dl (7-17); Calcium 9.8 mg/dl (8.4-10.2); Carbon Dioxide 30 mmol/L (22-30); Chloride 100 mmol/L (98-107); Estimated Creatinine Clearance 38 ml/min; Glucose 126 mg/dl (70-99); Magnesium 2.2 mg/dl (1.6-2.3); Potassium 4.9 mmol/L (3.5-5.1); Sodium 138 mmol/L (135-145); eGFR > 60.00
--- NOTE | 2024-10-21 14:16 | ED.GENMED ---
History of Present Illness
<Dean Mahoney PA-C - Last Filed: 10/22/24 12:55>
General
Chief Complaint: Visual Problem
Source: patient and records
Time Seen by Provider: 10/21/24 12:57
History of Present Illness
History of Present Illness:
89-year-old female with past medical history of lung cancer (last chemotherapy treatment was last Thursday), hypertension, hyperlipidemia presenting to the emergency department for evaluation of visual disturbance stating she started noticed a change
in her vision about 3 days ago, reports that her oncologist started her on a prednisone regimen for the visual issues but reports that the vision became acutely worse this morning prompting her to come to the ER. Patient states she has a history of
macular degeneration and already poor vision but states the focus in her vision started to get a little less sharp earlier in the week and today is to the point where she really cannot see anything at all. Patient states that she is still able to
see colors and shapes but is having a difficult time reading anything that is in front of her. She denies any headaches, vomiting, fevers or infectious symptoms, neck pain or stiffness. No anticoagulant use. No other concerns.
Past History
<Dean Mahoney PA-C - Last Filed: 10/22/24 12:55>
Past History
ED Past Medical History: Cancer (skin), GERD, HTN and Other (Osteoarthritis); Negative Hypercholesterolemia, IDDM, NIDDM or IN
ED Past Surgical History: Appendectomy, Cholecystectomy, Gynecological (Hysterectomy) and Orthopedic (Shoulder, knee)
Social History
Tobacco: Non-smoker
Alcohol: None
Drug: None
Personal:
Living: with family
Employment: Retired
Family History
Family History: Cancer (Colon Cancer)
Review of Systems
<Dean Mahoney PA-C - Last Filed: 10/22/24 12:55>
Review of Systems
All Other Systems: ROS reviewed and negative except as documented in HPI and ROS
Phy Exam
<Dean Mahoney PA-C - Last Filed: 10/22/24 12:55>
Physical Exam
Physical Exam:
GENERAL: Alert , in no apparent distress
HEAD: NCAT
EYE: pupils equal and reactive, 3mm bilateral, unable to appreciate papilledema. Gross vision: Patient unable to see fingers or objects placed centrally with 1 eye covered, able to make out some of the fingers held in front of her but laterally
seems to have more difficulty seeing objects. No entrapment, no proptosis
NECK: Supple, no midline tenderness, no meningismus
ENT: o/p clr, mmm.
CARDIAC: Regular rate and rhythm .
LUNGS: Clear breath sounds bilaterally, no acute respiratory distress, no wheezes/rales/rhonchi
NEUROLOGICAL: Alert and oriented
SKIN: Warm and dry, skin intact.
MUSCULOSKELETAL: No edema, well perfused.
PSYCH: Normal and appropriate interaction.
Scores
<Dean Mahoney PA-C - Last Filed: 10/22/24 12:55>
Heart Failure Risk
Heart Failure Risk Score: Not Applicable
Heart Score for Chest Pain Patients
STEMI patient?: Not applicable
Withdrawal Assessment of Alcohol
Withdrawal Assessment Completed?: Not applicable
Course
<Dean Mahoney PA-C - Last Filed: 10/22/24 12:55>
Orders/Labs/Results
Orders:
Orders
10/21/24 13:12
CT Head W/o Iv Contrast Urgent
Comment:
Reason For Exam: visual disturbance
10/21/24 13:13
Electrocardiogram (*1) Urgent
Reason for Study: TIA/Stroke
EKG- Treatment ONCE
10/21/24 13:41
Basic Metabolic Panel Urgent
Complete Blood Count/With Diff Urgent
Creatinine Urgent
Comment: ADD ON
Frmln-Bwog-Csvskyd Urgent
Comment: ADD ON
Magnesium Urgent
TSH Reflex To Free T4 Urgent
10/21/24 13:45
Add On- LAB Urgent
Comments:: tube in lab
Tests Added?: liver panel, creat, BUN
Abnormal Lab Results
10/21/24
13:41
RDW 14.9 H %
(11.5-14.5)
Abs Immat Gran (auto) 0.1 H 10^3/uL
(0-0.05)
Absolute Neuts (auto) 8.7 H 10^3/uL
(1.4-6.5)
Absolute Lymphs (auto) 0.5 L 10^3/uL
(1.2-3.4)
Neutrophils % 93.1 H %
(42.2-75.2)
Lymphocytes % 5.5 L %
(20.5-51.1)
Monocytes % 0.7 L %
(1.7-9.3)
BUN 36 H mg/dl
(7-17)
Glucose 126 H mg/dl
(70-99)
AST 40 H U/L
(14-36)
ALT 39 H U/L
(0-35)
10/21/24 13:41
10/21/24 13:41
Vital Signs
Initial and Last Documented VS:
Initial Vital Signs
Temp Pulse Resp BP Pulse Ox
98.2 F 81 16 153/81 97
10/21/24 11:25 10/21/24 11:25 10/21/24 11:10/21/24 11:10/21/24 11:25
Last Documented Vital Signs
Temp Pulse Resp BP Pulse Ox
98.2 F 81 16 153/81 97
10/21/24 11:10/21/24 11:10/21/24 11:10/21/24 11:10/21/24 15:16
<Rodger Mauricio PA-C - Last Filed: 10/21/24 17:32>
Orders/Labs/Results
Orders:
Orders
10/21/24 13:12
CT Head W/o Iv Contrast Urgent
Comment:
Reason For Exam: visual disturbance
10/21/24 13:13
Electrocardiogram (*1) Urgent
Reason for Study: TIA/Stroke
EKG- Treatment ONCE
10/21/24 13:41
Basic Metabolic Panel Urgent
Complete Blood Count/With Diff Urgent
Creatinine Urgent
Comment: ADD ON
Bmegw-Seqa-Fjagvdp Urgent
Comment: ADD ON
Magnesium Urgent
TSH Reflex To Free T4 Urgent
10/21/24 13:45
Add On- LAB Urgent
Comments:: tube in lab
Tests Added?: liver panel, creat, BUN
Abnormal Lab Results
10/21/24
13:41
RDW 14.9 H %
(11.5-14.5)
Abs Immat Gran (auto) 0.1 H 10^3/uL
(0-0.05)
Absolute Neuts (auto) 8.7 H 10^3/uL
(1.4-6.5)
Absolute Lymphs (auto) 0.5 L 10^3/uL
(1.2-3.4)
Neutrophils % 93.1 H %
(42.2-75.2)
Lymphocytes % 5.5 L %
(20.5-51.1)
Monocytes % 0.7 L %
(1.7-9.3)
BUN 36 H mg/dl
(7-17)
Glucose 126 H mg/dl
(70-99)
AST 40 H U/L
(14-36)
ALT 39 H U/L
(0-35)
10/21/24 13:41
10/21/24 13:41
Vital Signs
Initial and Last Documented VS:
Initial Vital Signs
Temp Pulse Resp BP Pulse Ox
98.2 F 81 16 153/81 97
10/21/24 11:25 10/21/24 11:25 10/21/24 11:25 10/21/24 11:25 10/21/24 11:25
Last Documented Vital Signs
Temp Pulse Resp BP Pulse Ox
98.2 F 81 16 153/81 97
10/21/24 11:25 10/21/24 11:25 10/21/24 11:25 10/21/24 11:25 10/21/24 15:16
<Dean Mahoney PA-C - Last Filed: 10/22/24 12:55>
MDM/Problems Addressed
Differential Diagnosis Includes:
Malignancy/metastases, intracranial bleeding, stroke, seizure, retinal detachment, progression of macular degeneration
MDM/Problems Addressed:
89-year-old female presenting to the ER for evaluation of visual disturbance that has been gradually worsening over the last 3 days. Unclear as to why patient was started on prednisone but she reports that her oncologist put her on this due to
potential side effects from her cancer treatment regimen. Patient appears to have a bitemporal hemianopsia on my exam. Stat head CT ordered. Labs ordered. Will discuss with neurology for further disposition planning/workup.
<Dean Mahoney PA-C - Last Filed: 10/22/24 12:55>
*Pulse Oximetry
Patient hypoxic: no
Data Reviewed
Review of Other/Old Records Reveals: Labs, Records and Testing
Source: patient and records
<Rodger Mauricio PA-C - Last Filed: 10/21/24 17:32>
*Critical Care Note
Total Time (30-74mins, 75-104mins- exclusive of procedures): Not Applicable
<Rodger Mauricio PA-C - Last Filed: 10/21/24 17:32>
Update Note
Update Note:
Patient signed out to me pending neurology evaluation. Neurology into see the patient. Per their evaluation no further need for any testing or imaging. Stable to go home with follow-up.
ED Attending Note
<Dean Mahoney PA-C - Last Filed: 10/22/24 12:55>
-
Portions of this chart may have been created with voice recognition software.� Occasional wrong word or��sound alike� substitutions may have occurred due to the inherent limitations of voice recognition software.
Discharge Plan
Departure
Patient Disposition: Home (Routine Discharge)
Date of Disposition: 10/21/24
Time of Disposition: 17:32
Patient with high blood pressure during this ER visit?: No
Discharge Problem:
Vision changes
Instructions: Double Vision (DC)
Prescriptions:
No Action
pantoprazole 40 MG tablet,delayed release (DR/EC)
40 mg PO DAILY
desvenlafaxine succinate 50 mg Tablet Extended Release 24 Hr
50 mg PO DAILY Qty: 0
amlodipine 2.5 mg tablet
2.5 mg PO DAILY
potassium chloride [Klor-Con] 20 mEq Packet
20 meq PO BID
furosemide 80 mg Tablet
80 mg PO DAILY
allopurinol 100 mg Tablet
200 mg PO DAILY
cyanocobalamin (vitamin B-12) 1,000 mcg Tablet
1,000 mcg PO DAILY
calcium carbonate-vitamin D3 [Calcium + D] 600 mg-5 mcg (200 unit) Tablet
1 tab PO BID
simvastatin 20 mg Tablet
20 mg PO DAILY
Prolia 60 mg/mL Syringe
60 mg SC [id number]
PreserVision AREDS 2,148 mcg-113 mg-45 mg-17.4mg Tablet
2 tab PO DAILY
Multivitamin Women 50 Plus 8 mg iron-400 mcg-50 mcg Tablet
1 tab PO DAILY
cholecalciferol (vitamin D3) [Vitamin D3] 125 mcg (5,000 unit) Tablet
250 mcg PO DAILY
prednisone 10 mg Tablet
40 mg PO DIRECTED
Rx Instructions:
40mg daily for 3 days then 30mg daily for 3 day then 20mg daily for 2 day then 10mg daily for 2 day
dexamethasone 4 mg Tablet
4 mg PO DIRECTED
Rx Instructions:
take before and after chemo treatment
Referrals:
Didier oGdinez Jr., DO [Family Provider, Internal Medicine]
Activity Restrictions/Additional Instructions:
Please return here for worsening symptoms otherwise follow-up with your doctor
Interventions
Interventions:
*Risk Screen - Suicide Last Done: 10/21/24 11:25
*General Assessment Last Done: 10/21/24 13:27
*Neglect/Abuse Screening Last Done: 10/21/24 11:25
*ED- Fall Risk Assessment Last Done: 10/21/24 13:27
*ED COVID-19 Vaccine History Last Done: 10/21/24 13:27
*Nursing Disposition Last Done: 10/21/24 17:55
ED- Neurological Assessment Last Done: 10/21/24 14:06
ED-EENT Assessment Last Done: 10/21/24 16:12
Discharge Date and Time
Discharge Date/Time: 10/21/24 17:55
Print Language: SWAZI
[2024-10-21 14:32] LABS: ALT (SGPT) 39 U/L (0-35); AST (SGOT) 40 U/L (14-36); Albumin 4.7 g/dl (3.5-5.0); Alkaline Phosphatase 67 U/L (38-126); Direct Bilirubin 0.2 mg/dl (0.0-0.4); Total Protein 7.5 g/dl (6.3-8.2)
[2024-10-21 15:57] LABS: TSH Reflex To Free T4 1.26 uIU/ml (0.47-4.68)
--- NOTE | 2024-10-21 17:24 | CON.NEURO ---
Neuro Assessment/Plan
Assessment
acute blurry vision, now improved. exam with no deficits and she looks great for her age. I have no reason to believe that this is anything other than a known side effect of checkpoint inhibitors and she should continue prednisone, and be discharged
without further workup. no need for MRI/MRA
Consultation
Order
Date of Consultation: 10/21/24
Requesting Provider: Dean Mahoney
Reason for Consult: blurry vision
Subjective/Objective
Subjective Data
Date of Service: October 21, 2024
from ED notes
89-year-old female with past medical history of lung cancer (last chemotherapy treatment was last Thursday), hypertension, hyperlipidemia presenting to the emergency department for evaluation of visual disturbance stating she started noticed a change
in her vision about 3 days ago, reports that her oncologist started her on a prednisone regimen for the visual issues but reports that the vision became acutely worse this morning prompting her to come to the ER. Patient states she has a history of
macular degeneration and already poor vision but states the focus in her vision started to get a little less sharp earlier in the week and today is to the point where she really cannot see anything at all. Patient states that she is still able to
see colors and shapes but is having a difficult time reading anything that is in front of her. She denies any headaches, vomiting, fevers or infectious symptoms, neck pain or stiffness. No anticoagulant use. No other concerns.
Seen this afternoon, patient is able to read/use her phone which is set in black and white, but not sure if it's all the way back to normal until she goes home and takes the vision test on her computer.
Objective Data
Vital Signs
Temp Pulse Resp BP Pulse Ox
36.8 C 81 16 153/81 97
10/21/24 11:25 10/21/24 11:25 10/21/24 11:25 10/21/24 11:25 10/21/24 15:16
Lab Results
10/21/24 13:41
10/21/24 13:41
Sodium 138 mmol/L (135-145) 10/21/24 13:41
Potassium 4.9 mmol/L (3.5-5.1) 10/21/24 13:41
BUN 36 mg/dl (7-17) H 10/21/24 13:41
Glucose 126 mg/dl (70-99) H 10/21/24 13:41
Calcium 9.8 mg/dl (8.4-10.2) 10/21/24 13:41
Patient Allergies
Cephalosporins Allergy (Verified 10/21/24 11:25)
Pharmacy to Review
penicillin G Allergy (Verified 10/21/24 11:25)
Hives
Physical Exam
-
AAOx3, speech clear, language intact
VFF, EOMI, loss of smooth pursuit, face symmetric
full strength b/l UE/LE
mild age appropriate vibratory loss fingers/ankles
FNF intact
Medications
-
Home Medications
�Medication �Instructions �Recorded
pantoprazole 40 mg tablet,delayed 40 mg PO DAILY Gastrointestinal 05/15/14
release Issue
desvenlafaxine succinate 50 mg 50 mg PO DAILY Mental 08/03/20
tablet,extended release 24 hr Health/Anxiety ##0
amlodipine 2.5 mg tablet 2.5 mg PO DAILY Blood Pressure 05/03/23
furosemide 80 mg tablet 80 mg PO DAILY 10/16/23
potassium chloride 20 mEq oral 20 meq PO BID 10/16/23
packet (Klor-Con)
allopurinol 100 mg tablet 200 mg PO DAILY 08/29/24
calcium 600 mg (as 1 tab PO BID 08/29/24
carbonate)-vitamin D3 5 mcg (200
unit) tablet
cholecalciferol (vitamin D3) 125 250 mcg PO DAILY 08/29/24
mcg (5,000 unit) tablet (Vitamin
D3)
cyanocobalamin (vitamin B-12) 1,000 mcg PO DAILY 08/29/24
1,000 mcg tablet
denosumab 60 mg/mL subcutaneous 60 mg SC [id number] 08/29/24
syringe (Prolia)
[id number] 8 mg-folic 400 1 tab PO DAILY 08/29/24
mcg-K 50 mcg-lutein 300 mcg tablet
(Multivitamin Women 50 Plus)
simvastatin 20 mg tablet 20 mg PO DAILY 08/29/24
vitamins A,C,B-tcpf-vymkmx 2,148 2 tab PO DAILY 08/29/24
mcg-113 mg-45 mg-17.4 mg tablet
(PreserVision AREDS)
dexamethasone 4 mg tablet 4 mg PO DIRECTED 10/21/24
prednisone 10 mg tablet 40 mg PO DIRECTED 10/21/24
== END 2024-10-21 17:55 | disposition home or self-care (01) ==
LOC: EMR 11:22
PROVIDERS: Physician Assistant Medical; EMERGENCY PHYSICIAN Emergency Medicine; FAMILY PHYSICIAN Family Medicine; OTHER PHYSICIAN Internal Medicine
DX: H53.8 Other visual disturbances (principal); C34.90 Malignant neoplasm of unspecified part of unspecified bronchus or lung; I10 Essential (primary) hypertension; Z88.0 Allergy status to penicillin; Z88.1 Allergy status to other antibiotic agents
CPT/HCPCS: 99284; 70450; 80048; 80076; 82565; 83735; 84443; 85025; 93005

== ENCOUNTER 2025-01-09 09:52 | Emergency (ER) | payer OTHER, SELFPAY ==
[2025-01-09] VITALS (8 sets, daily range): BP systolic 100–133; BP diastolic 48–66; BMI 25.7
--- NOTE | 2025-01-09 11:10 | ED.GENMED ---
History of Present Illness
General
Chief Complaint: Urinary Symptoms
Source: patient
Exam Limitations: none
Time Seen by Provider: 01/09/25 11:08
Nursing documentation reviewed up to this point in time: agreed with
History of Present Illness
History of Present Illness:
89-year-old female with history of HTN, HLD, GERD, depression lung CA s/p radiation and now getting Immunotherapy, presents for symptoms attributed to a bladder infection diagnosed on Thursday by her family physician, Dr. Copeland who did U/A in
office. The patient was experiencing pain in her lower abdomen, similar to her previous UTI's prompting her visit to the physicians office. She denies having burning sensation or increased frequency of urination. Denies pain at this time. She has
been feeling extremely fatigued and 'I keep shaking' past 2 days. Denies n/v/diarrhea.
Past History
Past History
ED Past Medical History: Cancer (skin), GERD, HTN and Other (Osteoarthritis); Negative Hypercholesterolemia, IDDM, NIDDM or MA
ED Past Surgical History: Appendectomy, Cholecystectomy, Gynecological (Hysterectomy) and Orthopedic (Shoulder, knee)
Social History
Tobacco: Non-smoker
Alcohol: None
Drug: None
Personal:
Living: with family
Employment: Retired
Family History
Family History: Cancer (Colon Cancer)
Review of Systems
Review of Systems
Allergies reviewed?: Yes
All Other Systems: ROS reviewed and negative except as documented in HPI and ROS
Constitutional: Reports chills; Denies fever
Respiratory: Denies trouble breathing
Cardiac: Denies chest pain
ABD/GI: Reports abdominal pain (past 2 days, denies at this time); Denies nausea, vomiting, diarrhea or anorexia
: Denies dysuria, frequency, flank pain, difficulty voiding or urgency
Musculoskeletal: Denies edema
Phy Exam
Physical Exam
Physical Exam:
GENERAL: No acute distress. A&Ox3.
CONSTITUTIONAL: Afebrile.
EYES: clear, conjunctivae normal
ENMT: Dry mucus membranes, Pharynx nl
RESPIRATORY: Regular respirations, nonlabored, lungs clear.
CARDIOVASCULAR: Regular rate and rhythm, no murmurs, no rubs.
GI: Soft, nontender, normal BS
MUSCULOSKELETAL: Moves with ease. Well perfused.
SKIN: Warm, dry, pale
PSYCH: Normal mood and affect. Well kept, interactive and appropriate
NEUROLOGIC: Awake, alert and oriented. No focal neurological deficits
Course
Orders/Labs/Results
Orders:
Orders
01/09/25 11:26
0.9% Sodium Chloride 500 ml [Nss] 500 ml IV BOLUS
01/09/25 11:35
Basic Metabolic Panel Urgent
Complete Blood Count/With Diff Urgent
TSH Reflex To Free T4 Urgent
Comment: ADD ON
01/09/25 11:45
Add On- LAB Urgent
Tests Added?: TSH reflex T4
01/09/25 14:06
Straight cath- Treatment ONCE
01/09/25 14:23
Urinalysis Reflex To Culture Urgent
Date Specimen was Collected: 01/09/25
Time Specimen was Collected: 11:28
01/09/25 15:55
Blood Culture Q30M
MARI Source: Blood/Venous
Specimen Description:
01/09/25 16:19
Blood Culture Q30M
MARI Source: Blood/Venous
Specimen Description:
Abnormal Lab Results
01/09/25
11:35
WBC 11.8 H 10^3/uL
(4.8-10.8)
RBC 3.92 L 10^6/uL
(4.20-5.40)
Hgb 11.4 L g/dL
(12.0-16.0)
Hct 34.3 L %
(37.0-47.0)
RDW 16.5 H %
(11.5-14.5)
Abs Immat Gran (auto) 0.1 H 10^3/uL
(0-0.05)
Absolute Neuts (auto) 10.6 H 10^3/uL
(1.4-6.5)
Absolute Lymphs (auto) 0.4 L 10^3/uL
(1.2-3.4)
Neutrophils % 90.3 H %
(42.2-75.2)
Lymphocytes % 3.7 L %
(20.5-51.1)
BUN 25 H mg/dl
(7-17)
01/09/25 11:35
01/09/25 11:35
Vital Signs
Initial and Last Documented VS:
Initial Vital Signs
Temp Pulse Resp BP Pulse Ox
98.5 F 91 18 133/63 97
01/09/25 09:55 01/09/25 09:55 01/09/25 09:55 01/09/25 09:55 01/09/25 09:55
Last Documented Vital Signs
Temp Pulse Resp BP Pulse Ox
98.6 F 70 16 115/55 92
01/09/25 14:31 01/09/25 14:31 01/09/25 14:31 01/09/25 15:00 01/09/25 15:15
MDM/Problems Addressed
Differential Diagnosis Includes:
UTI, dehydration chemotherapy related side effects, hypoglycemia
MDM/Problems Addressed:
89-year-old female with history of HTN, HLD, GERD, depression lung CA s/p radiation and now getting Immunotherapy, presents for symptoms attributed to a bladder infection diagnosed on Thursday by her family physician, Dr. Copeland who did U/A in
office. The patient was experiencing pain in her lower abdomen, similar to her previous UTI's prompting her visit to the physicians office. She denies having burning sensation or increased frequency of urination. Denies pain at this time. She has
been feeling extremely fatigued and 'I keep shaking' past 2 days. Denies n/v/diarrhea.
CBC, CMP noted,
UA negative
Patient is receiving immunotherapy for her cancer, her fatigue may be related to that
With patient being on immunotherapy, her urine testing positive in the office yesterday for infection, mild leukocytosis, I will obtain blood cultures and have her continue her antibiotic
Patient is stable for discharge.
*Pulse Oximetry
SaO2: 97
Oxygen Mode of Delivery: Room air
Patient hypoxic: no
*Critical Care Note
Total Time (30-74mins, 75-104mins- exclusive of procedures): Not Applicable
ED Attending Note
-
Portions of this chart may have been created with voice recognition software.� Occasional wrong word or��sound alike� substitutions may have occurred due to the inherent limitations of voice recognition software.
Discharge Plan
Departure
Patient Disposition: Home (Routine Discharge)
Date of Disposition: 01/09/25
Time of Disposition: 15:28
Patient with high blood pressure during this ER visit?: No
Condition: Good
Discharge Problem:
Fatigue
Instructions: Fatigue - ED (DC)
Prescriptions:
No Action
pantoprazole 40 MG tablet,delayed release (DR/EC)
40 mg PO DAILY
desvenlafaxine succinate 50 mg Tablet Extended Release 24 Hr
50 mg PO DAILY Qty: 0
amlodipine 2.5 mg tablet
2.5 mg PO DAILY
potassium chloride [Klor-Con] 20 mEq Packet
20 meq PO BID
furosemide 80 mg Tablet
80 mg PO DAILY
allopurinol 100 mg Tablet
200 mg PO DAILY
cyanocobalamin (vitamin B-12) 1,000 mcg Tablet
1,000 mcg PO DAILY
calcium carbonate-vitamin D3 [Calcium + D] 600 mg-5 mcg (200 unit) Tablet
1 tab PO BID
simvastatin 20 mg Tablet
20 mg PO DAILY
Prolia 60 mg/mL Syringe
60 mg SC [id number]
PreserVision AREDS 2,148 mcg-113 mg-45 mg-17.4mg Tablet
2 tab PO DAILY
Multivitamin Women 50 Plus 8 mg iron-400 mcg-50 mcg Tablet
1 tab PO DAILY
cholecalciferol (vitamin D3) [Vitamin D3] 125 mcg (5,000 unit) Tablet
250 mcg PO DAILY
dexamethasone 4 mg Tablet
4 mg PO DIRECTED
Rx Instructions:
take before and after chemo treatment
Referrals:
Didier Godinez Jr., DO [Family Provider, Internal Medicine] - Keep scheduled appt
Activity Restrictions/Additional Instructions:
As we discussed, your workup here today shows nothing worrisome.
Your urine is clear
Because you are immunocompromised, your urine tested positive for infection yesterday, continue your antibiotic until finished
Because you had chills and you are receiving chemotherapy, we karla blood cultures, we will call you if they come back positive (you will have to return here for antibiotics if they are positive)
Return here immediately for fever, worsening chills, vomiting or feeling sicker in any way.
Interventions
Interventions:
*Risk Screen - Suicide Last Done: 01/09/25 09:55
*General Assessment Last Done: 01/09/25 11:39
*Neglect/Abuse Screening Last Done: 01/09/25 09:55
*ED- Fall Risk Assessment Last Done: 01/09/25 11:39
*ED COVID-19 Vaccine History Last Done: 01/09/25 11:39
*Nursing Disposition Last Done: 01/09/25 15:58
ED-Female Genitourinary Assessment Last Done: 01/09/25 11:39
Discharge Date and Time
Discharge Date/Time: 01/09/25 16:22
Print Language: IRISH
[2025-01-09] MEDS: NSS 500 IV (11:42)
[2025-01-09 11:50] LABS: Hematocrit 34.3 % (37.0-47.0); Hemoglobin 11.4 g/dL (12.0-16.0); Mean Corp Hgb Conc. 33.2 g/dL (33.0-37.0); Mean Corpuscular Volume 87.5 fL (81.0-99.0); Nucleated Red Blood Cells % 0 %; Platelet Count 325 10^3/uL (130-400); Red Cell Dist. Width 16.5 % (11.5-14.5)
[2025-01-09 12:07] LABS: Blood Urea Nitrogen 25 mg/dl (7-17); Calcium 9.5 mg/dl (8.4-10.2); Carbon Dioxide 25 mmol/L (22-30); Chloride 107 mmol/L (98-107); Estimated Creatinine Clearance 33 ml/min; Glucose 96 mg/dl (70-99); Sodium 136 mmol/L (135-145); eGFR > 60.00
[2025-01-09 14:51] LABS: Urine Character Clear (Clear)
== END 2025-01-09 16:22 | disposition home or self-care (01) ==
LOC: EMR 09:52
PROVIDERS: Registered Nurse; EMERGENCY PHYSICIAN Emergency Medicine; FAMILY PHYSICIAN Family Medicine
DX: R10.30 Lower abdominal pain, unspecified (principal); R53.83 Other fatigue; I10 Essential (primary) hypertension; E78.5 Hyperlipidemia, unspecified; C34.90 Malignant neoplasm of unspecified part of unspecified bronchus or lung; Z92.3 Personal history of irradiation; Z85.828 Personal history of other malignant neoplasm of skin; Z79.60 Long term (current) use of unspecified immunomodulators and immunosuppressants
CPT/HCPCS: 96360; 99284; 80048; 81003; 84443; 85025; 87040

== ENCOUNTER 2025-01-09 18:16 | Emergency (ER) | payer OTHER, SELFPAY ==
[2025-01-09 18:19] VITALS: BP 98/61
[2025-01-09 18:56] LABS: COVID-19 Antigen Negative (Negative)
[2025-01-09 21:30] VITALS: BP 124/56
[2025-01-09 22:00] VITALS: BP 126/54
[2025-01-09] MEDS: NSS 500 IV (22:23)
[2025-01-09 23:16] VITALS: BP 117/49
[2025-01-10] VITALS: BP 109/53
--- NOTE | 2025-01-10 00:33 | ED.GENMED ---
History of Present Illness
General
Chief Complaint: Weakness
Source: patient and spouse
Exam Limitations: none
Time Seen by Provider: 01/09/25 21:51
History of Present Illness
History of Present Illness:
Patient was seen earlier this afternoon. Workup at that time was unremarkable. She is being treated for UTI. She is unsure the antibiotic. Upon returning home she felt very weak and dizzy getting out of the car.
Past History
Past History
ED Past Medical History: Cancer (skin), GERD, HTN and Other (Osteoarthritis); Negative Hypercholesterolemia, IDDM, NIDDM or CA
ED Past Surgical History: Appendectomy, Cholecystectomy, Gynecological (Hysterectomy) and Orthopedic (Shoulder, knee)
Social History
Tobacco: Non-smoker
Alcohol: None
Drug: None
Personal:
Living: with family
Employment: Retired
Family History
Family History: Cancer (Colon Cancer)
Phy Exam
Physical Exam
Physical Exam:
GENERAL: Alert and oriented in no apparent distress
EYE: Orbits normal.
NECK: Supple
CARDIAC: Regular rate and rhythm without any obvious murmurs.
LUNGS: Clear breath sounds,normal
ABDOMEN: Soft, without focal tenderness or distention. No CVA tenderness
NEUROLOGICAL: Alert and oriented , grossly non-focal
SKIN: Warm and dry, no rash or lesion, no discoloration, skin intact.
MUSCULOSKELETAL: No edema,no deformity.Good color
PSYCH: Normal and appropriate interaction.
Course
Orders/Labs/Results
Orders:
Orders
01/09/25 18:26
Electrocardiogram (*1) Urgent
Reason for Study: Fatigue / Weakness
EKG- Treatment ONCE
01/09/25 18:27
COVID-19 Antigen Urgent
Source: Nasal Swab
Influenza A+B Rapid Molecular Urgent
MARI Source: Nasal Swab
Specimen Description:
01/09/25 22:07
IV Insert/Care/Rem.- Treatment PRN
01/09/25 22:08
CT Abd/Pel (IV only)-DH only Urgent
Comment:
Reason For Exam: Shaking chills/UTI symptoms.
0.9% Sodium Chloride 500 ml [Nss] 500 ml IV BOLUS
01/09/25 22:09
Electrocardiogram (*1) Stat
Reason for Study: Other
Other Reason for Exam: chest pain
Cardiac Monitoring- Treatment ONCE
EKG- Treatment ONCE
01/09/25 22:24
Blood Culture Q30M
MARI Source: Blood/Venous
Specimen Description:
01/09/25 23:08
Blood Culture Q30M
MARI Source: Blood/Venous
Specimen Description:
Vital Signs
Initial and Last Documented VS:
Initial Vital Signs
Temp Pulse Resp BP Pulse Ox
97.8 F 79 16 98/61 95
01/09/25 18:19 01/09/25 18:19 01/09/25 18:19 01/09/25 18:19 01/09/25 18:19
Last Documented Vital Signs
Temp Pulse Resp BP Pulse Ox
98 F 91 14 109/53 93
01/09/25 23:08 01/10/25 00:15 01/10/25 00:15 01/10/25 00:00 01/10/25 00:37
*Radiology
Radiology exam reviewed: radiology read reviewed (No acute findings on CT. Small loculated left pleural effusion)
*Pulse Oximetry
SaO2: 93
Oxygen Mode of Delivery: Room air
Patient hypoxic: no
*EKG
Interpreted by ED Provider?: Yes
Interpretation: abnormal
Heart Rate: 78
Rate: normal
Rhythm: sinus
[place]: normal axis
Interval: normal interval
QRS Pattern: normal QRS
Ischemia: no ischemia
*Critical Care Note
Total Time (30-74mins, 75-104mins- exclusive of procedures): Not Applicable
Update Note
Update Note:
Patient rechecked. In no distress. Stable EKG. Stable vital signs. Ambulated well without issues. Clinical symptoms described are infectious issues with chills over the weekend. She could have a partially treated UTI with the antibiotics
however doubt pyelonephritis or other acute issue. Offered admission for observation although reasonable for continued outpatient observation patient is comfortable going home. Patient had a slight drop in hemoglobin but not describing any acute
GI symptoms.
ED Attending Note
-
Portions of this chart may have been created with voice recognition software.� Occasional wrong word or��sound alike� substitutions may have occurred due to the inherent limitations of voice recognition software.
Discharge Plan
Departure
Patient Disposition: Home (Routine Discharge)
Date of Disposition: 01/10/25
Time of Disposition: 00:34
Patient with high blood pressure during this ER visit?: No
Discharge Problem:
General weakness, recent UTI
Instructions: Generalized Weakness (DC)
Prescriptions:
No Action
pantoprazole 40 MG tablet,delayed release (DR/EC)
40 mg PO DAILY
desvenlafaxine succinate 50 mg Tablet Extended Release 24 Hr
50 mg PO DAILY Qty: 0
amlodipine 2.5 mg tablet
2.5 mg PO DAILY
potassium chloride [Klor-Con] 20 mEq Packet
20 meq PO BID
furosemide 80 mg Tablet
80 mg PO DAILY
allopurinol 100 mg Tablet
200 mg PO DAILY
cyanocobalamin (vitamin B-12) 1,000 mcg Tablet
1,000 mcg PO DAILY
calcium carbonate-vitamin D3 [Calcium + D] 600 mg-5 mcg (200 unit) Tablet
1 tab PO BID
simvastatin 20 mg Tablet
20 mg PO DAILY
Prolia 60 mg/mL Syringe
60 mg SC [id number]
PreserVision AREDS 2,148 mcg-113 mg-45 mg-17.4mg Tablet
2 tab PO DAILY
Multivitamin Women 50 Plus 8 mg iron-400 mcg-50 mcg Tablet
1 tab PO DAILY
cholecalciferol (vitamin D3) [Vitamin D3] 125 mcg (5,000 unit) Tablet
250 mcg PO DAILY
dexamethasone 4 mg Tablet
4 mg PO DIRECTED
Rx Instructions:
take before and after chemo treatment
Referrals:
Didier Godinez Jr., DO [Family Provider, Internal Medicine] - Follow up in 2-3 days
Activity Restrictions/Additional Instructions:
Continue the antibiotics. Stay well-hydrated
Return with worsening symptoms, worsening weakness, fever, vomiting or any other concerning symptoms
Interventions
Interventions:
*Risk Screen - Suicide Last Done: 01/09/25 21:53
*General Assessment Last Done: 01/09/25 21:53
*Neglect/Abuse Screening Last Done: 01/09/25 21:53
*ED- Fall Risk Assessment Last Done: 01/09/25 21:53
*ED COVID-19 Vaccine History Last Done: 01/09/25 21:53
*Nursing Disposition Last Done: 01/10/25 00:49
ED- Cardiac Assessment Last Done: 01/09/25 21:52
ED- Neurological Assessment Last Done: 01/09/25 21:52
ED- Pulmonary Assessment Last Done: 01/09/25 21:52
Discharge Date and Time
Discharge Date/Time: 01/10/25 00:50
Print Language: LATVIAN
== END 2025-01-10 00:50 | disposition home or self-care (01) ==
LOC: EMR 18:16
PROVIDERS: Emergency Medicine; EMERGENCY PHYSICIAN Emergency Medicine; FAMILY PHYSICIAN Family Medicine
DX: R53.1 Weakness (principal); I10 Essential (primary) hypertension; Z85.828 Personal history of other malignant neoplasm of skin; Z87.440 Personal history of urinary (tract) infections; Z90.49 Acquired absence of other specified parts of digestive tract
CPT/HCPCS: 74177; 87040; 87502; 87811; 93005; 96360; 99284; Q9967

== ENCOUNTER 2025-02-08 23:38 | Inpatient (IN) | payer OTHER, SELFPAY ==
[2025-02-08] VITALS (24 sets, daily range): BP systolic 67–107; BP diastolic 43–62
[2025-02-08 21:50] LABS: Hematocrit 33.9 % (37.0-47.0); Hemoglobin 11.0 g/dL (12.0-16.0); Mean Corp Hgb Conc. 32.4 g/dL (33.0-37.0); Mean Corpuscular Volume 89.7 fL (81.0-99.0); Platelet Count 340 10^3/uL (130-400); Red Cell Dist. Width 20.3 % (11.5-14.5)
[2025-02-08 21:52] LABS: INR 0.92; PT 12.8 Sec (11.4-14.6)
[2025-02-08] MEDS: VERSED 2 MG IV (21:53)
[2025-02-08 21:57] LABS: ALT (SGPT) 17 U/L (0-35); AST (SGOT) 34 U/L (14-36); Albumin 4.2 g/dl (3.5-5.0); Alkaline Phosphatase 174 U/L (38-126); Blood Urea Nitrogen 19 mg/dl (7-17); Calcium 10.2 mg/dl (8.4-10.2); Carbon Dioxide 25 mmol/L (22-30); Chloride 102 mmol/L (98-107); Glucose 124 mg/dl (70-99); Potassium 3.9 mmol/L (3.5-5.1); Sodium 136 mmol/L (135-145); Total Protein 6.9 g/dl (6.3-8.2); eGFR 54.53
[2025-02-08 22:04] LABS: Absolute Neutrophils -Man Diff 43.4 10^3/uL (1.4-6.5)
[2025-02-08 22:05] LABS: Anisocytosis 1+; Normal RBC Morphology No; Platelets Checked Yes; Troponin I 0.014 ng/ml
[2025-02-08 22:06] LABS: Macrocytosis 2+; Polychromasia Slight
[2025-02-08 22:08] LABS: Poikilocytosis Slight
[2025-02-08 22:09] LABS: Total Cells Counted 100
--- NOTE | 2025-02-08 22:33 | ED.GENMED ---
History of Present Illness
General
Chief Complaint: Chest Pain
Source: patient
Exam Limitations: none
Time Seen by Provider: 02/08/25 21:57
Nursing documentation reviewed up to this point in time: agreed with
History of Present Illness
History of Present Illness:
Patient presents to ED secondary to sudden onset of chest pain, shortly after dinner tonight. Chest pain described as sharp, with radiation to back, jaw, and right arm. Denies dizziness. Denies nausea or vomiting. Denies diaphoresis. Denies
previous history of similar symptoms. Patient's medical history is significant for lung cancer, currently receiving treatment. Denies recent change in medications or diet. Patient states that she has appetite and tries to drink as much water as
she can. Upon arrival to ED, patient found to be severely tachycardic.
Past History
Past History
ED Past Medical History: Cancer (skin), GERD, HTN and Other (Osteoarthritis); Negative Hypercholesterolemia, IDDM, NIDDM or VA
ED Past Surgical History: Appendectomy, Cholecystectomy, Gynecological (Hysterectomy) and Orthopedic (Shoulder, knee)
Social History
Tobacco: Non-smoker
Alcohol: None
Drug: None
Personal:
Living: with family
Employment: Retired
Family History
Family History: Cancer (Colon Cancer)
Review of Systems
Review of Systems
Allergies reviewed?: Yes
All Other Systems: ROS reviewed and negative except as documented in HPI and ROS
Constitutional: Reports no symptoms
Respiratory: Reports trouble breathing
Cardiac: Reports chest pain
ABD/GI: Reports no symptoms
Musculoskeletal: Reports no symptoms
Skin: Reports no symptoms
Neurological: Reports weakness
Phy Exam
Physical Exam
Physical Exam:
Physical Exam
General: moderate distress, acutely ill. afebrile. weak appearing. hypotensive
Head: nc/at. eomi
Neck: supple. normal range of motion.
Heart: regular but tachycardic
Lungs: no acute respiratory distress. diminished breath sounds bilaterally
Abdomen: normal bowel sounds. not tender.
Neuro: alert and oriented x 3. no focal neurological deficits
Skin: no rash
Psychiatric: well kept. interactive and cooperative
Extremities: no edema.
Scores
Heart Score for Chest Pain Patients
STEMI patient?: No
History: Moderately Suspicious
ECG: Normal
Age: >/= 65 years
Risk Factors: 1 or 2 Risk Factors
Troponin: </= Normal Limit
Heart Score for Chest Pain Patients: 4
Heart Score Risk: 20.3% MACE over next 6 weeks
Course
Orders/Labs/Results
Orders:
Orders
02/08/25 21:21
EKG [Electrocardiogram (*1)] Urgent
Reason for Study: Chest Pain
EKG- Treatment ONCE
02/08/25 21:29
Electrocardiogram (*1) Urgent
Reason for Study: Chest Pain
Cardiac Monitoring- Treatment ONCE
EKG- Treatment ONCE
IV Insert/Care/Rem.- Treatment PRN
O2 Therapy [RESP] Urgent
Titrate/Wean O2 to maintain O2 sat greater than (%): 90
Special Instructions: Maintain sats >/=90%
Pulse Ox/spot Check [RESP] Urgent
Quantity: 1
Special Instructions: ON ROOM AIR
02/08/25 21:33
Complete Blood Count/With Diff Urgent
Comprehensive Metabolic Panel Urgent
Magnesium Urgent
Comment: ADD ON
Manual Differential Urgent
Prothrombin Time Urgent
Troponin I Urgent
02/08/25 21:34
Adenosine [Adenocard] 18 mg .ROUTE .STK-MED ONE
02/08/25 21:43
Adenosine [Adenocard] 6 mg .ROUTE .STK-MED ONE
02/08/25 21:47
Midazolam HCl [Versed] 5 mg .ROUTE .STK-MED ONE
02/08/25 21:50
Midazolam HCl [Versed] 2 mg IV NOW STA
02/08/25 21:52
Diltiazem 125 mg/125 ml Nss [Cardizem] 125 mg in 125 ml .ROUTE .STK-MED
Diltiazem HCl [Cardizem] 25 mg .ROUTE .STK-MED ONE
02/08/25 22:17
Adenosine [Adenocard] 12 mg IV NOW STA
Adenosine [Adenocard] 6 mg IV NOW STA
02/08/25 22:18
Diltiazem HCl [Cardizem] 10 mg IV NOW STA
02/08/25 22:19
0.9% Sodium Chloride 500 ml [Nss] 500 ml IV BOLUS
02/08/25 22:30
Diltiazem 125 mg/125 ml Nss [Cardizem] 125 mg in 125 ml IV PER PROTOCOL
Initial dose in mg/hr, then titrate:: 5
Titrate to keep:: Heart rate 80-100 bpm
Titrate by mg/hr:: 5 mg/hr
Frequency of titrations (minutes):: 15
Maximum dose in mg/hr:: 15
02/08/25 23:09
Add On- LAB Urgent
Tests Added?: Magnesium
0.9% Sodium Chloride 500 ml [Nss] 500 ml IV BOLUS
02/08/25 23:16
Admit/Transfer Patient As Directed
Co-Sign Provider:
Level of Care: Inpatient admission
Assign to:: IVU
Physician / Group: Jordin
Diagnosis: SVT
Reason for Hospitalization: SVT
Expected length of stay greater than two midnights?: Yes
ELOS- Estimated Length of Stay in days: 3
I certify the patient meets the requirements for IP care: Yes
PRN Pain Medication Management As Directed
May give lesser potent ordered pain med per pt: Yes
preference::
Protocol:: Medication orders for pain may be administered in a
manner that supports deferring to patient preference
when the pt is:
- Requesting an ordered lesser potent pain medication.
Least to most potent pain medications are defined
as: acetaminophen < NSAID < tramadol < opioids
(morphine, oxycodone, hydromorphone).
- Requesting a lesser dose of the same medication IF
ORDERED.
- Requesting a less intrusive route of administration
if both routes are prescribed by the provider (PO <
IV).
02/08/25 23:18
Code Status As Directed
Resuscitation Status: Full Code
02/08/25 23:24
Mag Hydrox/Al Hydrox/Simeth [Maalox] 30 ml PO NOW STA
02/09/25 01:09
Acetaminophen [Tylenol] 650 mg PO Q4HPRN PRN
02/09/25 01:09
CARDIOLOGY CONSULT Routine
Consulting Provider: Jose Gross
Was physician already notified: No
Reason for consult: SVT (Patient requested CBC)
Consult Notification Routine
Specialty to Notify: Cardiology
Date consulting provider notified: 02/09/25
Time consulting provider notified: 07:21
Notified:: Provider
Activity As Directed
Activity Level: Ambulate
With Assistance
EKG with chest pain [ECG as needed] As Directed
ECG as needed for:: Chest Pain
I/O [Intake/ Output] As Directed
Frequency: Per unit guidelines
Pneumatic Compression Sleeves As Directed
Type: Knee high
Vital Signs As Directed
Frequency: Per unit guidelines
Weight As Directed
Frequency: Daily
Oxygen Therapy [O2 Therapy] [RESP] Routine
Titrate/Wean O2 to maintain O2 sat greater than (%): 94
DX Deep Vein Thrombosis Video Routine
02/09/25 04:06
Basic Metabolic Panel IN AM
Complete Blood Count/No Diff IN AM
TSH Reflex To Free T4 Routine
Troponin I Q6H
02/09/25 06:00
EKG [Electrocardiogram (*1)] IN AM
Reason for Study: Chest Pain
Echo 2D MMode Doppler [Echo 2D MMode Color/Doppler] IN AM
Reason for Study: SVT
NPO
Allow oral meds: Yes
Allow clear liquids: Sips of Clears
02/09/25 08:00
Aspirin Chewable [Low Strength Aspirin] 81 mg PO DAILY
Pantoprazole [Protonix] 40 mg PO DAILY
Abnormal Lab Results
02/08/25
21:33
WBC 57.2 H* 10^3/uL
(4.8-10.8)
RBC 3.78 L 10^6/uL
(4.20-5.40)
Hgb 11.0 L g/dL
(12.0-16.0)
Hct 33.9 L %
(37.0-47.0)
MCHC 32.4 L g/dL
(33.0-37.0)
RDW 20.3 H %
(11.5-14.5)
Abs Neuts (Manual) 43.4 H 10^3/uL
(1.4-6.5)
Lymphocytes (Manual) 9 L %
(20-51)
BUN 19 H mg/dl
(7-17)
Glucose 124 H mg/dl
(70-99)
Magnesium 1.3 L mg/dl
(1.6-2.3)
Alkaline Phosphatase 174 H U/L
(38-126)
02/08/25 21:33
02/08/25 21:33
Vital Signs
Initial and Last Documented VS:
Initial Vital Signs
Pulse Resp Pulse Ox
197 27 95
02/08/25 21:34 02/08/25 21:34 02/08/25 21:34
Last Documented Vital Signs
Temp Pulse Resp BP Pulse Ox
98.1 F 80 15 120/48 92
02/09/25 08:43 02/09/25 08:43 02/09/25 08:43 02/09/25 03:46 02/09/25 08:43
Procedures
Cardioversion
Indication:: SVT
Performed by:: Marty Garner M.D.
Synchronized?: Yes
Energy Used: 200 joules
Number of attempts: 1
Successful?: Yes
Complications: None
ASA Risk Score: Class I
Any reaction or bad outcome to prior sedation/anesthesia?: No history of a reaction
Sedation level to be attained: moderate
Chart and allergies reviewed: Yes
Patient reassessed prior to sedation: Yes
Time out completed at (validating right patient & procedure): 21:49
History of difficult intubation: No
Airway free of obstruction: Yes
Patient has a gag reflex: Yes
Patient is able to open mouth: Yes
Patient has no dentures: Yes
Patient has no loose teeth: Yes
Medication administered by Provider during Moderate Sedation: Other (versed)
Total dose administered: 2
Time drug administered: 21:49
Start Time: 21:49
Stop Time: 21:59
MDM/Problems Addressed
MDM/Problems Addressed:
Patient evaluated immediately upon arrival secondary to presenting symptoms along with extreme tachycardia. EKG revealed narrow complex tachycardia, likely SVT. Patient given adenosine x 3 after unsuccessful valsalva maneuver, with temporarily
slowing down her heart rate, but unfortunately remaining tachycardic. Unfortunately after third dose of adenosine, patient noted to become more hypotensive. As such, after discussion with patient, decision made to administer Versed and perform
emergent cardioversion. Patient successfully cardioverted with 200 J. Initially, patient appeared to be in atrial fibrillation rhythm on the monitor. As such, patient started immediately on Cardizem infusion. However, repeat EKG reveals sinus
tachycardia. However in light of fluctuating heart rate, decision was made to continue Cardizem drip at 5 mg/h. Patient given additional IV fluids due to labile blood pressure. Initial troponin noted, which may be secondary to tachycardia, but
difficult to exclude potential cardiac etiology, in light of patient's presenting symptoms.
Critical care statement: A total of 40 minutes of critical care time was provided for this patient. This includes management of unstable vital signs, evaluation of the patient at bedside, reviewing the patient's pertinent medical records, review of
old EKGs and review of pertinent medical records. This time with separate from time utilized to perform the aforementioned documented procedures
*Pulse Oximetry
SaO2: 95
Oxygen Mode of Delivery: Room air
Patient hypoxic: no
*Critical Care Note
Total Time (30-74mins, 75-104mins- exclusive of procedures): 40 min
ED Attending Note
-
Portions of this chart may have been created with voice recognition software.� Occasional wrong word or��sound alike� substitutions may have occurred due to the inherent limitations of voice recognition software.
Discharge Plan
Departure
Patient Disposition: Admit
Date of Disposition: 02/08/25
Time of Disposition: 22:44
Admit to: Telemetry
Presentation/result/management discussed w/ accepting MD/DO: Hospitalist
Discharge Problem:
Chest pain, SVT (supraventricular tachycardia)
Interventions
Interventions:
*Risk Screen - Suicide Last Done: 02/08/25 21:59
*General Assessment Last Done: 02/08/25 21:59
*Neglect/Abuse Screening Last Done: 02/08/25 21:59
*ED- Fall Risk Assessment Last Done: 02/09/25 01:18
*ED COVID-19 Vaccine History Last Done: 02/09/25 01:15
*Nursing Disposition Last Done: 02/09/25 01:18
ED- Cardiac Assessment Last Done: 02/08/25 23:30
Discharge Date and Time
Discharge Date/Time: 02/09/25 01:19
[2025-02-08] MEDS: ADENOCARD 6 MG IV (22:34)
[2025-02-08] MEDS: ADENOCARD 12 MG IV (22:34)
[2025-02-08] MEDS: CARDIZEM 125 IV (22:34)
[2025-02-08] MEDS: NSS 500 IV ×2 (22:35→23:21)
--- NOTE | 2025-02-08 23:23 | HPS.HSE ---
Family Physician
-
Family Physician: Didier Godinez Jr.
Chief Complaint
-
Chest Pain
History of Present Illness
Patient is an 89y F with PMH significant for ILD, CKD III and lung cancer currently on chemo / immunotherapy who presents to ED complaining of chest pain. Patient is currently on her 'off week' from chemo. She reports having intermittent
episodes of chest discomfort / burning pain. This evening after dinner she had onset of severe chest pain with radiation to both side of her jaw and down into both upper extremities. She denies any associated SOB, N/V or diaphoresis. She did not
feel palpitations. Patient denies any prior episodes of this severity. She has no known cardiac issues and does not see a [facility].
Patient presented to the ED this evening where she was noted to be in rapid SVT with rates in the 180s. She received adenosine x 2 without improvement.
BP was soft and patient ultimately underwent cardioversion with successful jew of sinus rhythm / sinus tachycardia.
At the time of my examination, patient states that she feels improved from previous. She has no chest pain at present.
She does complain of acid reflux / indigestion in the throat. No other current complaints.
Patient notes that she has Lasix at home that she takes 'as needed' and she did take a dose earlier today. No other recent med changes.
Medical History
Past Medical History
Past Medical History: Reports Other
Additional Past Medical History:
Squamous Cell Lung Cancer on Chemo / Immunotherapy
ASCVD / Prior CVA
Hypertension
CKD III
Osteoporosis
Interstitial Lung Disease
Anxiety / Depression
GERD
Past Surgical History: Reports Other
Additional Past Surgical History:
TVH/BSO
Left Foot Surgery
Cholecystectomy
Right Rotator Cuff Surgery
Left TSA
Cataracts
Right TKA
Social History
Tobacco: Non-smoker
Alcohol: None
Drug: None
Family History
Family History: Not pertinent
Allergies / Home Medications
Allergies reflects when Allergies were last updated in [employer].
Home Medications with original date entered in [employer]
Allergy/Medication List:
Allergies
Allergy/AdvReac Type Severity Reaction Status Date / Time
Cephalosporins Allergy SEE BELOW Verified 02/08/25 23:27
penicillin G Allergy Hives Verified 01/09/25 18:25
Home Medications
pantoprazole 40 mg tablet,delayed release 40 mg PO DAILY Gastrointestinal Issue 05/15/14
desvenlafaxine succinate 50 mg tablet,extended release 24 hr 50 mg PO DAILY Mental Health/Anxiety ##0 08/03/20
amlodipine 2.5 mg tablet 2.5 mg PO DAILY Blood Pressure 05/03/23
furosemide 80 mg tablet 80 mg PO DAILY 10/16/23
potassium chloride 20 mEq oral packet (Klor-Con) 20 meq PO BID 10/16/23
allopurinol 100 mg tablet 200 mg PO DAILY 08/29/24
calcium 600 mg (as carbonate)-vitamin D3 5 mcg (200 unit) tablet 1 tab PO BID 08/29/24
cholecalciferol (vitamin D3) 125 mcg (5,000 unit) tablet (Vitamin D3) 250 mcg PO DAILY 08/29/24
cyanocobalamin (vitamin B-12) 1,000 mcg tablet 1,000 mcg PO DAILY 08/29/24
simvastatin 20 mg tablet 20 mg PO DAILY 08/29/24
dexamethasone 4 mg tablet 4 mg PO DIRECTED 10/21/24
Review of Systems
-
History Source: Patient
A 12 point ROS was completed and negative except as noted: Yes
Constitutional: Reports Fatigue; Denies Fever or Chills
Respiratory: Denies Cough or Trouble Breathing
Cardiac: Reports Chest Pain; Denies Palpitations
Abdomen/GI: Reports Other (heartburn); Denies Abdominal Pain, Nausea, Vomiting or Diarrhea
: Denies Dysuria or Frequency
Musculoskeletal: Denies Joint Pain or Edema
Neurological: Denies Dizzy or Headache
Physical Exam
Vital Signs
Vital Signs
Pulse Resp BP Pulse Ox
98 16 94/54 97
02/08/25 23:10 02/08/25 23:10 02/08/25 23:10 02/08/25 23:10
Physical Exam
General: Other (Pale, chronically ill-appearing 89y F in no acute distress.)
HEENT: Other (Dry MM. Neck supple.)
Respiratory: Other (Decreased at bases - otherwise clear.)
Cardiac: S1/S2, Regular Rhythm and Murmur (II/ HEMANT)
GI: Other (Abdomen is softly distended. No focal tenderness. Normal BS.)
Musculoskeletal: No Clubbing, No Cyanosis and No Edema
Neuro: AO x 3
Laboratory Results
-
02/08/25 21:33
02/08/25 21:33
Laboratory Results
PT 12.8 Sec (11.4-14.6) 02/08/25 21:33
INR 0.92 02/08/25 21:33
Total Bilirubin 0.5 mg/dl (0.2-1.3) 02/08/25 21:33
AST 34 U/L (14-36) 02/08/25 21:33
ALT 17 U/L (0-35) 02/08/25 21:33
Alkaline Phosphatase 174 U/L (38-126) H 02/08/25 21:33
Troponin I 0.014 ng/ml 02/08/25 21:33
Impression/Plan
-
A/P: Patient is an 89y F with PMH significant for lung cancer on chemotherapy / immunotherapy, CKD and prior CVA who presents to ED complaining of chest pain.
SVT
- Admit to IVU for further evaluation and treatment.
- s/p emergency cardioversion in the ED with jew of sinus rhythm - currently sinus tach.
- BP soft, but stable 90-100 systolic.
- Continue IVF support.
- Can stop Cardizem infusion in sinus rhythm.
- Consider amiodarone if recurrent SVT, etc.
- Cardiology evaluation for additional recommendations.
- Update Echo.
- Monitor on tele overnight for any new arrhythmia.
Chest Pain
- Likely secondary to tachyarrhythmia.
- Doubt typical ACS.
- Follow serial troponin.
- Non-specific ST changes in lateral leads on EKG.
- Cardiology evaluation as noted above.
Leukocytosis
- Marked leukocytosis on initial labs - unclear etiology.
- ? related to malignancy (though WBC was 11 a few weeks ago).
- ? if patient receives G-CSF at the end of her chemo run (last week) - could not confirm this.
- Afebrile and no focal symptoms suggestive of infection.
- Observe off of abx for now.
- Follow for changes in cell counts.
Squamous Cell Lung Cancer
- On immunotherapy / chemotherapy regimen.
- 2 weeks on / 1 week off (currently on off week).
- Follow-up with Oncology after discharge.
CKD III
- Stable. SCr is at / near known baseline.
- Follow for any changes.
COPD / ILD
- Stable. No new cough, dyspnea, etc.
- Not on any maintenance inhalers, etc.
GERD
- Complaining of heartburn at present.
- Continue PPI daily.
DVT Prophylaxis: SCDs
Code Status: Full
[2025-02-08] MEDS: MAALOX 30 ML PO (23:30)
[2025-02-08 23:46] LABS: Magnesium 1.3 mg/dl (1.6-2.3)
[2025-02-09] VITALS (9 sets, daily range): BP systolic 98–120; BP diastolic 47–87; BMI 28.4
[2025-02-09] MEDS: MAGNESIUM SULFATE 100 IV (01:40)
[2025-02-09] MEDS: ZOFRAN 4 MG IV (04:10)
--- NOTE | 2025-02-09 04:21 | PTCARENOTE ---
Pt. rec'd into room 2255 from ED AAOx3, VSS, NSR on the monitor. Pt. denies any chest pain/discomfort. Lungs diminished and some ENAMORADO assessed with activity, maintained on 2L O2 with pulse ox 93-95% (trialed on room air, pulse ox 88-89%). Pt.
generally weak and requires assist x 1 with all activities, fall precautions initiated. Pt. oriented to room and plan of care, understanding verbalized. Currently resting quietly.
[2025-02-09 04:55] LABS: Hematocrit 28.6 % (37.0-47.0); Hemoglobin 9.6 g/dL (12.0-16.0); Mean Corp Hgb Conc. 33.6 g/dL (33.0-37.0); Mean Corpuscular Volume 90.8 fL (81.0-99.0); Platelet Count 269 10^3/uL (130-400); Red Cell Dist. Width 19.8 % (11.5-14.5)
[2025-02-09 05:07] LABS: Blood Urea Nitrogen 16 mg/dl (7-17); Calcium 9.3 mg/dl (8.4-10.2); Carbon Dioxide 24 mmol/L (22-30); Chloride 107 mmol/L (98-107); Estimated Creatinine Clearance 44 ml/min; Glucose 75 mg/dl (70-99); Magnesium 1.8 mg/dl (1.6-2.3); Potassium 3.9 mmol/L (3.5-5.1); Sodium 139 mmol/L (135-145); eGFR > 60.00
[2025-02-09 05:29] LABS: Troponin I 0.185 ng/ml
[2025-02-09] MEDS: PROTONIX 40 MG PO (09:25)
[2025-02-09] MEDS: LOW STRENGTH ASPIRIN 81 MG PO (09:26)
--- NOTE | 2025-02-09 10:08 | CON.CAR ---
Consultation
Consultation Request
Date/Time Consultation Requested: 02/09/25, 7am
Date/Time Consultation Performed: 02/09/25, 8am
Requesting Provider: Marco
Performing Provider: Renato
Reason for Consultation: A fib with RVR
Medical History
-
Chief Complaint: chest pain
History of Present Illness:
89 yo female with PMH of recurrent lung cancer on carboplatin, paclitaxel, Keytruda; HTN, hyperlipidemia presents to ED with chest pain. She was found to be severely tachycardia. By my review, rhythm was A fib with RVR. BP was low. She underwent
DCCV in ED, and is back in sinus.
Past Medical History
Past Medical History: Cancer (lung), HTN and Hypercholesterolemia
Past Surgical History: Cholecystectomy and Gynecological (JE/BSO)
Social History
Tobacco: Non-Smoker
Family History
Family History: Early CAD (none)
Allergies / Home Medications
Allergy/AdvReac Type Severity Reaction Status Date / Time
Cephalosporins Allergy SEE BELOW Verified 02/08/25 23:27
penicillin G Allergy Hives Verified 01/09/25 18:25
�Medication �Instructions �Recorded �Confirmed �Type
pantoprazole 40 mg tablet,delayed 40 mg PO DAILY Gastrointestinal 05/15/14 02/08/25 History
release Issue
desvenlafaxine succinate 50 mg 50 mg PO DAILY Mental 08/03/20 02/08/25 History
tablet,extended release 24 hr Health/Anxiety ##0
amlodipine 2.5 mg tablet 2.5 mg PO DAILY Blood Pressure 05/03/23 02/08/25 History
furosemide 80 mg tablet 80 mg PO DAILY 10/16/23 02/08/25 History
potassium chloride 20 mEq oral 20 meq PO BID 10/16/23 02/08/25 History
packet (Klor-Con)
allopurinol 100 mg tablet 200 mg PO DAILY 08/29/24 02/08/25 History
calcium 600 mg (as 1 tab PO BID 08/29/24 02/08/25 History
carbonate)-vitamin D3 5 mcg (200
unit) tablet
cholecalciferol (vitamin D3) 125 250 mcg PO DAILY 08/29/24 02/08/25 History
mcg (5,000 unit) tablet (Vitamin
D3)
cyanocobalamin (vitamin B-12) 1,000 mcg PO DAILY 08/29/24 02/08/25 History
1,000 mcg tablet
simvastatin 20 mg tablet 20 mg PO DAILY 08/29/24 02/08/25 History
dexamethasone 4 mg tablet 4 mg PO DIRECTED 10/21/24 02/08/25 History
Review of Systems
-
History Source: Patient
All other systems: Negative unless noted
Constitutional: Fatigue
Cardiac: Chest Pain and Palpitations
Neurological: Weakness
Physical Exam
Vital Signs
Temp Pulse Resp BP Pulse Ox
98.1 F 80 15 120/48 92
02/09/25 08:43 02/09/25 08:43 02/09/25 08:43 02/09/25 03:46 02/09/25 08:43
Lab Results
02/09/25 04:06
02/09/25 04:06
Troponin I Cancelled 02/09/25 13:09
Physical Exam
General: No Apparent Distress
HEENT: Normocephalic and Anicteric
Respiratory: Clear and Non Labored Respirations
Cardiac: S1/S2 (normal), Regular Rhythm, Murmur (II/ systolic at RUSB), Peripheral Edema (none) and JVD (none)
Musculoskeletal: No Clubbing, No Cyanosis and No Edema
Skin: Warm and Dry
Neuro: AO x 3
Psych: Calm
Impression / Plan
-
89 yo female with PMH of recurrent lung cancer on carboplatin, paclitaxel, Keytruda; HTN, hyperlipidemia presents to ED with chest pain. Etiology appeared to be new A fib with RVR.
#A fib with RVR, new
-severe, requiring hospitalization and monitoring of tele
-s/p DCCV in ED
-BP has been running on low side
-will start amiodarone load (400mg bid for 2 weeks, then 200mg daily
-CHADS2-VASC = 4. Eliquis 5mg bid for OAC.
-echo
# Elevated troponin
-acute non-ischemic myocardial injury in setting of A fib with RVR
-trend trop
-echo
# HTN
-BP on low side
-stop amlodipine
# recurrent lung cancer on carboplatin, paclitaxel, Keytruda
-per oncology at [place]
Data Reviewed
-
EKG: Tracing Personally Visualized and interpreted (A fib with RVR)
Labs: Labs Reviewed by me
Old Records: Reviewed
[2025-02-09] MEDS: PACERONE 400 MG PO ×2 (10:19→20:22)
[2025-02-09] MEDS: ELIQUIS 5 MG PO ×2 (10:19→20:22)
[2025-02-09 10:38] LABS: Troponin I 0.186 ng/ml
--- NOTE | 2025-02-09 12:03 | CM ---
Addendum entered by Rebecca Haro 02/09/25 13:36:
Telephone call to her insurance to check on co-pay for Xarelto is $138.30 and Dabigatran is $70.15 a month. Reviewed with and Mrs. Connor and they feel they can not afford any of the options.
Original Note:
Reviewed chart. Met with Mrs. Connor to review discharge plans. She states prior to admission she resides with her spouse in a two story home with three steps to enter. She states she has a full flight of steps to get to bedroom/full bathroom.
She states she has a powder room on the first floor. She states prior to admission she was independent with ambulation and adls. She states she does not have any DME in the home. She states she has a prescription plan and uses [facility].
Telephone call to her insurance to check on co-pay for Eliquis 5 mg po bid. Her co-pay for Eliquis is $145.61. a month. She feels this may be to costly for her. Placed the one month free coupon in her red discharge folder. Medical work-up in
progress. The discharge plan is to return home with her spouse when medically stable.
--- NOTE | 2025-02-09 15:58 | W.PN.HOSP.TC ---
Today's Communication/Plan
-
Amio
Eliquis
ECHO
Assessment / Plan
Assessment / Plan
Physical Exam
General: Other (Pale, chronically ill-appearing 89y F in no acute distress.)
HEENT: Other (Dry MM. Neck supple.)
Respiratory: Other (Decreased at bases - otherwise clear.)
Cardiac: S1/S2, Regular Rhythm and Murmur (II/ HEMANT)
GI: Other (Abdomen is softly distended. No focal tenderness. Normal BS.)
Musculoskeletal: No Clubbing, No Cyanosis and No Edema
Neuro: AO x 3
A/P: Patient is an 89y F with PMH significant for lung cancer on chemotherapy / immunotherapy, CKD and prior CVA who presents to ED complaining of chest pain.
A fib with RVR, new
- Admit to IVU for further evaluation and treatment.
- s/p emergency cardioversion in the ED with shinto of sinus rhythm - currently sinus tach.
- BP soft, but stable 90-100 systolic.
- Continue IVF support.
- Can stop Cardizem infusion in sinus rhythm.
- Amiodarone initiation
- Update Echo
- Monitor on tele overnight for any new arrhythmia.
- Eliquis
Chest Pain
- Likely secondary to tachyarrhythmia.
- Doubt typical ACS.
- Non-specific ST changes in lateral leads on EKG.
- Cardiology evaluation as noted above.
Elevated Troponin
-most likely non ischemic myocardial injury 2/2 to Afib
-cont to monitor/trend
-cards consulted
-Stop amlodipine
Leukocytosis
- Marked leukocytosis on initial labs - unclear etiology. May also be worse acute stress and reactive
- ? related to malignancy (though WBC was 11 a few weeks ago).
- ? if patient receives G-CSF at the end of her chemo run (last week) - could not confirm this.
- Afebrile and no focal symptoms suggestive of infection.
- Observe off of abx for now.
- Follow for changes in cell counts.
- monitor fever curve/wbc - already coming down
Squamous Cell Lung Cancer
- On immunotherapy / chemotherapy regimen.
- 2 weeks on / 1 week off (currently on off week).
- Follow-up with Oncology after discharge.
CKD III
- Stable. SCr is at / near known baseline.
- Follow for any changes.
COPD / ILD
- Stable. No new cough, dyspnea, etc.
- Not on any maintenance inhalers, etc.
GERD
- Complaining of heartburn at present.
- Continue PPI daily.
DVT Prophylaxis: Eliquis
Code Status: Full
Anticipated Discharge: Within 24 hours
Subjective/Interval History
-
Date of Service: February 09, 2025
DVVC in ED; started amiodarone
Objective Data
-
Labs:
Laboratory Results
02/09/25
04:06
WBC 44.2 H*
Hgb 9.6 L
Hct 28.6 L
Plt Count 269 D
Sodium 139
Potassium 3.9
Chloride 107
Carbon Dioxide 24
BUN 16
Creatinine 0.8
Glucose 75
Calcium 9.3
Vital Signs:
Vital Signs
Temp Pulse Resp BP Pulse Ox
98.5 F 77 17 120/48 91
02/09/25 15:23 02/09/25 15:23 02/09/25 15:23 02/09/25 03:46 02/09/25 15:23
I&O
02/08/25 02/09/25 02/10/25
06:59 06:59 06:59
Intake Total 240 / 240
Balance 240 / 240
Review of Systems
-
History Source: Patient
All other systems: Reviewed and negative
Physical Exam
-
General: Well Developed, Well Nourished and No Apparent Distress
HEENT: Normocephalic and Atraumatic; Negative Oxygen
Respiratory: Clear to Auscultation; Negative Wheezes or Rhonchi
Cardiac: Regular Rhythm and S1/S2; Negative Murmur
GI: Soft, Nontender, Nondistended and Normal Bowel Sounds
Musculoskeletal: No Clubbing, No Cyanosis and No Edema
Neuro: Awake
Psych: Calm
Data Reviewed
-
Labs: Labs Reviewed by me
--- NOTE | 2025-02-09 17:00 | PTCARENOTE ---
Pt received this am with no c/o of any pain or sob. Room air sat 95%. Assisted oob to the chair and pt stayed in the chair all day long. OOB to the BR with the walker, gait steady. C/o of mild occasional lightheadedness when walking. Remains in SR,
rate in the 70's to 80's.
[2025-02-09 18:10] LABS: Troponin I 0.111 ng/ml
--- NOTE | 2025-02-09 23:38 | PTCARENOTE ---
Pt rec'd at change of shift oob in recliner chair with family at bedside. No c/o cp or sob. Sinus on telemetry. O2 sat at HS 86% on R/A. RR 24. Pt denies feeling sob. Lungs clear. O2 placed at 2 lit n/c with sat's improving to 92-94%.
[2025-02-10 03:24] VITALS: BP 123/56
[2025-02-10 04:24] LABS: Hematocrit 31.3 % (37.0-47.0); Hemoglobin 10.2 g/dL (12.0-16.0); Mean Corp Hgb Conc. 32.6 g/dL (33.0-37.0); Mean Corpuscular Volume 91.5 fL (81.0-99.0); Platelet Count 285 10^3/uL (130-400); Red Cell Dist. Width 20.2 % (11.5-14.5)
--- NOTE | 2025-02-10 04:32 | PTCARENOTE ---
At Approx 0330 pt was seen coming oob after voiding. Assisted back to bed. Pt dyspneic on exertion with audible wheeze noted in upper airway not heard when lungs auscultated. Pt stated ' It's just my post nasal drip'. sat 90% on R/A, pt refusing to
wear o2 'its smells bad'.
[2025-02-10 04:48] LABS: ALT (SGPT) 16 U/L (0-35); AST (SGOT) 21 U/L (14-36); Albumin 3.3 g/dl (3.5-5.0); Alkaline Phosphatase 155 U/L (38-126); Blood Urea Nitrogen 15 mg/dl (7-17); Calcium 9.0 mg/dl (8.4-10.2); Carbon Dioxide 25 mmol/L (22-30); Chloride 108 mmol/L (98-107); Estimated Creatinine Clearance 39 ml/min; Glucose 88 mg/dl (70-99); Magnesium 1.8 mg/dl (1.6-2.3); Potassium 4.0 mmol/L (3.5-5.1); Sodium 139 mmol/L (135-145); Total Protein 5.7 g/dl (6.3-8.2); eGFR > 60.00
[2025-02-10 06:00] VITALS: BMI 28.0
[2025-02-10 08:13] VITALS: BP 145/55
--- NOTE | 2025-02-10 08:13 | W.PN.CD ---
Today's Communication / Plan
-
stable from cardiac perspective
amiodarone: 200mg tab (2 tabs twice daily for 10 days, then one tab daily)
eliquis 5mg bid
stop amlodipine
lasix prn
please call us with additional questions; follow up is in chart
Impression / Plan
-
89 yo female with PMH of recurrent lung cancer on carboplatin, paclitaxel, Keytruda; HTN, hyperlipidemia presents to ED with chest pain. Etiology appeared to be new A fib with RVR.
#A fib with RVR, new
-s/p DCCV in ED
-BP has been running on low side
-echo: EF 55-60%, mild/mod MR
-continue amiodarone load (400mg bid for 2 weeks, then 200mg daily)
-CHADS2-VASC = 4. Eliquis 5mg bid for OAC.
# Elevated troponin
-acute non-ischemic myocardial injury in setting of A fib with RVR
-trend trop
-echo: normal LVEF
# HTN
-BP on low side
-stop amlodipine
-lasix prn
# Mild/mod MR
-outpatient f/u
# recurrent lung cancer on carboplatin, paclitaxel, Keytruda
-per oncology at [facility]
Physical Exam
Vital Signs/Labs
Vital Signs
Temp Pulse Resp BP Pulse Ox
97.4 F 81 24 123/56 90
02/09/25 22:50 02/10/25 06:00 02/10/25 03:24 02/10/25 03:24 02/10/25 03:24
02/09/25 02/10/25 02/11/25
06:59 06:59 06:59
Actual Weight 68.1 kg 67.2 kg
02/10/25 03:34
02/10/25 03:34
PT 12.8 Sec (11.4-14.6) 02/08/25 21:33
INR 0.92 02/08/25 21:33
Magnesium 1.8 mg/dl (1.6-2.3) 02/10/25 03:34
LAB Results
02/08/25 02/09/25 02/09/25
21:33 04:06 07:09
Troponin I 0.014 0.185 H* D Cancelled
02/09/25 02/09/25 02/09/25
10:03 13:09 17:34
Troponin I 0.186 H* Cancelled 0.111 H* D
Physical Exam
Constitutional: No acute distress
EENT: Moist mucous membranes
Cardiovascular: Rhythm & rate is regular, Pedal edema is absent, JVD pressure is normal and Systolic murmur absent
Respiratory: Respiratory effort normal and Lungs clear to auscul.
Neuro/Psych: AO x 3
Data Reviewed
-
Date of Service: February 10, 2025
EKG: Other (Tele: SR 80s)
Labs: Labs Reviewed by me
[2025-02-10] MEDS: PROTONIX 40 MG PO (08:55)
[2025-02-10] MEDS: PACERONE 400 MG PO (08:56)
[2025-02-10] MEDS: ELIQUIS 5 MG PO (08:56)
--- NOTE | 2025-02-10 13:01 | CM ---
Reviewed chat. Met with Mrs. Connor to review discharge plans. She states she is feeling okay and hoping to be able to go home soon. We reviewed the Patient Assistance Program for the Eliquis and gave her the applications. Also reviewed
PACE/[employer] and also gave her the PACE applications to see if will qualify for their program. Prior to admission she resides with her spouse in a two story home with three steps to enter. She has a full flight of steps to get to bedroom/full
bathroom. She has a powder room on the first floor. Prior to admission she was independent with ambulation and adls. She does not have any DME in the home. She has a prescription plan and uses [facility]. Telephone call to her insurance to
check on co-pay for Eliquis 5 mg po bid. Her co-pay for Eliquis is $145.61. a month. She feels this may be to costly for her. Placed the one month free coupon in her red discharge folder. Medical work-up in progress. The discharge plan is to
return home with her spouse when medically stable.
--- NOTE | 2025-02-10 14:04 | W.PN.HOSP.TC ---
Addendum entered and electronically signed by Judah Lara MD 02/10/25 15:43:
[id number]
Original Note:
Today's Communication/Plan
-
amiodadone
Stop CCB and change to Lasix PRN
F/u Cards outpt
F/u CBC, BMP outpt
holding K repletion now that lasix prn
F/u Onc outpt
Assessment / Plan
Assessment / Plan
Physical Exam
General: Other (Pale, chronically ill-appearing 89y F in no acute distress.)
HEENT: Other (Dry MM. Neck supple.)
Respiratory: Other (Decreased at bases - otherwise clear.)
Cardiac: S1/S2, Regular Rhythm and Murmur (II/ HEMANT)
GI: Other (Abdomen is softly distended. No focal tenderness. Normal BS.)
Musculoskeletal: No Clubbing, No Cyanosis and No Edema
Neuro: AO x 3
A/P: Patient is an 89y F with PMH significant for lung cancer on chemotherapy / immunotherapy, CKD and prior CVA who presents to ED complaining of chest pain.
A fib with RVR, new
- Admit to IVU for further evaluation and treatment.
- s/p emergency cardioversion in the ED with hindu of sinus rhythm - currently sinus tach.
- BP soft, but stable 90-100 systolic.
- Continue IVF support.
- Can stop Cardizem infusion in sinus rhythm.
- Amiodarone initiation
- Echo 55 to 60%, mild to moderate MR
� Amiodarone 400 mg twice daily for 10 days, then 200 mg daily
- Eliquis
Chest Pain
- Likely secondary to tachyarrhythmia.
- Doubt typical ACS.
- Non-specific ST changes in lateral leads on EKG.
- Cardiology evaluation as noted above.
Elevated Troponin
-most likely non ischemic myocardial injury 2/2 to Afib
-cont to monitor/trend
-cards consulted
-Stop amlodipine
Leukocytosis
- Marked leukocytosis on initial labs - unclear etiology. May also be worse acute stress and reactive
-Spoke to Oncology - Dr. Robles at [facility] - received C-GSF on 02/02 - more than likely cause of elevated WBC
-NO evidence of acute infectious process at this time
-F/u CBC outpt
HTN
�Stop amlodipine
�Lasix prn
Squamous Cell Lung Cancer
- On immunotherapy / chemotherapy regimen.
- 2 weeks on / 1 week off (currently on off week).
- Follow-up with Oncology after discharge.
CKD III
- Stable. SCr is at / near known baseline.
- Follow for any changes.
COPD / ILD
- Stable. No new cough, dyspnea, etc.
- Not on any maintenance inhalers, etc.
GERD
- Complaining of heartburn at present.
- Continue PPI daily.
DVT Prophylaxis: Eliquis
Code Status: Full
More than 30 minutes spent in discharge including
Final examination of the patient
Summarizing hospital stay
Instructions for continuing care to all relevant caregivers
Preparation of discharge records, prescriptions, and referral forms
Total time spent (in minutes): 36
Anticipated Discharge: Today
Subjective/Interval History
-
Date of Service: February 10, 2025
No acute events, remained to be in sinus rhythm
Objective Data
-
Labs:
Laboratory Results
02/10/25
03:34
WBC 40.5 H*
Hgb 10.2 L
Hct 31.3 L
Plt Count 285
Sodium 139
Potassium 4.0
Chloride 108 H
Carbon Dioxide 25
BUN 15
Creatinine 0.9
Glucose 88
Calcium 9.0
Total Bilirubin 0.2
AST 21
ALT 16
Alkaline Phosphatase 155 H
Vital Signs:
Vital Signs
Temp Pulse Resp BP Pulse Ox
99.4 F 72 18 145/55 91
02/10/25 11:52 02/10/25 10:00 02/10/25 11:52 02/10/25 08:13 02/10/25 11:52
I&O
02/09/25 02/10/25 02/11/25
06:59 06:59 06:59
Intake Total 240 / 240 340 / 340
Balance 240 / 240 340 / 340
Review of Systems
-
History Source: Patient
All other systems: Reviewed and negative
Physical Exam
-
General: Well Developed, Well Nourished and No Apparent Distress
HEENT: Normocephalic and Atraumatic; Negative Oxygen
Respiratory: Clear to Auscultation; Negative Wheezes or Rhonchi
Cardiac: Regular Rhythm and S1/S2; Negative Murmur
GI: Soft, Nontender, Nondistended and Normal Bowel Sounds
Musculoskeletal: No Clubbing, No Cyanosis and No Edema
Neuro: Awake
Psych: Calm
Data Reviewed
-
Labs: Labs Reviewed by me
--- NOTE | 2025-02-10 14:08 | W.DS.TRANS ---
DC Summary - [employer]
-
Discharge Instructions:
Discharge Diagnosis/Procedures A fib with RVR, new
Leukocytosis
Diet Low Cholesterol,Low Fat
Activity As tolerated
Blood Work cbc and bmp in 3-5 days with pcp/oncology
Instructions:
Stand-Alone Forms:
Changes to Home Medications: Yes
Discharge Medications:
DC Medications w/original date entered in [facility]
pantoprazole 40 mg tablet,delayed release 40 mg PO DAILY Gastrointestinal Issue 05/15/14
desvenlafaxine succinate 50 mg tablet,extended release 24 hr 50 mg PO DAILY Mental Health/Anxiety ##0 08/03/20
potassium chloride 20 mEq oral packet (Klor-Con) 20 meq PO BID Supplement 10/16/23
Held on 02/10/25. Instructions: Resume on 02/22/25. f/u with pcp
allopurinol 100 mg tablet 200 mg PO DAILY Gout 08/29/24
calcium 600 mg (as carbonate)-vitamin D3 5 mcg (200 unit) tablet 1 tab PO BID Supplement 08/29/24
cholecalciferol (vitamin D3) 125 mcg (5,000 unit) tablet (Vitamin D3) 250 mcg PO DAILY Supplement 08/29/24
cyanocobalamin (vitamin B-12) 1,000 mcg tablet 1,000 mcg PO DAILY Supplement 08/29/24
simvastatin 20 mg tablet 20 mg PO DAILY High Cholesterol 08/29/24
dexamethasone 4 mg tablet 4 mg PO DIRECTED chemo treatment 10/21/24
amiodarone 200 mg tablet 200 mg PO DAILY 30 days #30 tabs 02/10/25
amiodarone 200 mg tablet (Pacerone) 400 mg (2 x 200 mg) PO BID 10 days #40 tabs 02/10/25
apixaban 5 mg tablet (Eliquis) 5 mg PO BID 30 days #60 tabs 02/10/25
furosemide 80 mg tablet 80 mg PO DAILY PRN Blood Pressure #0 tabs 02/10/25
Home Medication Changes
amiodarone 200 mg tablet 200 mg PO DAILY 30 days #30 tabs 02/10/25
amiodarone 200 mg tablet (Pacerone) 400 mg (2 x 200 mg) PO BID 10 days #40 tabs 02/10/25
apixaban 5 mg tablet (Eliquis) 5 mg PO BID 30 days #60 tabs 02/10/25
furosemide 80 mg tablet 80 mg PO DAILY PRN Blood Pressure #0 tabs 02/10/25
Pending Results: No
--- NOTE | 2025-02-10 16:30 | PTCARENOTE ---
Pt received this am with no c/o of any pain or sob. OOB to the chair and bathroom independently, gait steady. Pt discharged to home with her . Discharge instructions given and reviewed with good understanding and all questions answered.
== END 2025-02-10 16:28 | disposition home or self-care (01) | DRG 309 ==
LOC: IVU 23:38
PROVIDERS: Emergency Medicine; ADMITTING PHYSICIAN Hospitalist; ATTENDING PHYSICIAN Internal Medicine; CONSULT PHYSICIAN Internal Medicine; EMERGENCY PHYSICIAN Emergency Medicine; FAMILY PHYSICIAN Family Medicine
DX: I48.91 Unspecified atrial fibrillation (principal); C34.90 Malignant neoplasm of unspecified part of unspecified bronchus or lung; J84.9 Interstitial pulmonary disease, unspecified; I5A Non-ischemic myocardial injury (non-traumatic); I47.10 Supraventricular tachycardia, unspecified; N18.30 Chronic kidney disease, stage 3 unspecified; I12.9 Hypertensive chronic kidney disease with stage 1 through stage 4 chronic kidney disease, or unspecified chronic kidney disease; K21.9 Gastro-esophageal reflux disease without esophagitis; M19.90 Unspecified osteoarthritis, unspecified site; I25.10 Atherosclerotic heart disease of native coronary artery without angina pectoris; D72.829 Elevated white blood cell count, unspecified; E78.00 Pure hypercholesterolemia, unspecified; I34.0 Nonrheumatic mitral (valve) insufficiency; J44.9 Chronic obstructive pulmonary disease, unspecified; M81.0 Age-related osteoporosis without current pathological fracture; F32.A Depression, unspecified; F41.9 Anxiety disorder, unspecified; Z96.651 Presence of right artificial knee joint; Z96.612 Presence of left artificial shoulder joint; Z88.1 Allergy status to other antibiotic agents; Z88.0 Allergy status to penicillin; Z90.49 Acquired absence of other specified parts of digestive tract; Z90.710 Acquired absence of both cervix and uterus; Z80.0 Family history of malignant neoplasm of digestive organs; Z85.828 Personal history of other malignant neoplasm of skin; Z92.21 Personal history of antineoplastic chemotherapy; Z86.73 Personal history of transient ischemic attack (TIA), and cerebral infarction without residual deficits; Z79.899 Other long term (current) drug therapy; Z79.82 Long term (current) use of aspirin
CPT/HCPCS: 80048; 80053; 83735; 84443; 84484; 85025; 85027; 85610; 92960; 93005; 93306; 96374; 96375; 96376; 99291; J0153

== ENCOUNTER 2025-02-18 20:35 | Emergency (ER) | payer OTHER, SELFPAY ==
[2025-02-18 20:38] VITALS: BP 130/60
[2025-02-18 20:56] LABS: Hematocrit 35.9 % (37.0-47.0); Hemoglobin 12.0 g/dL (12.0-16.0); Mean Corp Hgb Conc. 33.4 g/dL (33.0-37.0); Mean Corpuscular Volume 90.0 fL (81.0-99.0); Nucleated Red Blood Cells % 0 %; Platelet Count 256 10^3/uL (130-400); Red Cell Dist. Width 20.4 % (11.5-14.5)
[2025-02-18 21:09] LABS: ALT (SGPT) 22 U/L (0-35); AST (SGOT) 23 U/L (14-36); Albumin 3.7 g/dl (3.5-5.0); Alkaline Phosphatase 85 U/L (38-126); Blood Urea Nitrogen 33 mg/dl (7-17); Calcium 8.5 mg/dl (8.4-10.2); Carbon Dioxide 23 mmol/L (22-30); Chloride 108 mmol/L (98-107); Glucose 97 mg/dl (70-99); Potassium 4.3 mmol/L (3.5-5.1); Sodium 138 mmol/L (135-145); Total Protein 6.3 g/dl (6.3-8.2); eGFR > 60.00
[2025-02-18 23:14] VITALS: BP 141/51
[2025-02-18 23:33] LABS: Urine Character Slightly Cloudy (Clear)
--- NOTE | 2025-02-18 23:43 | ED.GENMED ---
Addendum entered and electronically signed by Vicente Avery PA-C 02/21/25 06:24:
Positive urine culture, treated w/ fosfomycin
Original Note:
History of Present Illness
General
Chief Complaint: Abdominal Pain
Source: patient
Exam Limitations: none
Time Seen by Provider: 02/18/25 23:14
Nursing documentation reviewed up to this point in time: agreed with
History of Present Illness
History of Present Illness:
Patient to ED with complaint of weakness, pain with urination. Symptoms started today. Denies fever/chills. Brought to ED by spouse for eval.
Past History
Past History
ED Past Medical History: Cancer (skin, lung (currently receiving chemo)), GERD, HTN and Other (Osteoarthritis); Negative Hypercholesterolemia, IDDM, NIDDM or ID
ED Past Surgical History: Appendectomy, Cholecystectomy, Gynecological (Hysterectomy) and Orthopedic (Shoulder, knee)
Social History
Tobacco: Non-smoker
Alcohol: None
Drug: None
Personal:
Living: with family
Employment: Retired
Family History
Family History: Cancer (Colon Cancer)
Review of Systems
Review of Systems
Allergies reviewed?: Yes
All Other Systems: ROS reviewed and negative except as documented in HPI and ROS
Constitutional: Reports no symptoms
EENT: Reports no symptoms
Respiratory: Reports no symptoms
Cardiac: Reports no symptoms
ABD/GI: Reports no symptoms
: Reports dysuria, frequency and urgency
Musculoskeletal: Reports no symptoms
Skin: Reports no symptoms
Neurological: Reports weakness
Psychiatric: Reports no symptoms
Phy Exam
General Physical Exam
General Presentation: well appearing and mild distress
General age: appears stated age
General Skin: warm and dry
General Habitus: normal
General Mental: alert
General Hydration: appears well hydrated
Course
Orders/Labs/Results
Orders:
Orders
02/18/25 20:47
Complete Blood Count/With Diff Urgent
Comprehensive Metabolic Panel Urgent
Lactic Acid Q4H
Comment: ON ICE, CANCEL 2ND ORDER IF FIRST LACTIC ACID LEVEL <2
02/18/25 23:21
Urinalysis Reflex To Culture Urgent
Date Specimen was Collected: 02/18/25
Time Specimen was Collected: 20:42
Urine Microscopic Reflex Cult Urgent
Urine Culture Urgent
MARI Source: U
Specimen Description:
Date Specimen was Collected: 02/18/25
Time Specimen was Collected: 20:42
02/18/25 23:42
0.9% Sodium Chloride 1000 ml [Nss] 1,000 ml IV BOLUS
02/18/25 23:54
Fosfomycin [Monurol] 3 gm PO ONCE ONE
Abnormal Lab Results
02/18/25 02/18/25
20:47 23:21
WBC 12.5 H 10^3/uL
(4.8-10.8)
RBC 3.99 L 10^6/uL
(4.20-5.40)
Hct 35.9 L %
(37.0-47.0)
RDW 20.4 H %
(11.5-14.5)
Abs Immat Gran (auto) 0.1 H 10^3/uL
(0-0.05)
Absolute Neuts (auto) 11.5 H 10^3/uL
(1.4-6.5)
Absolute Lymphs (auto) 0.5 L 10^3/uL
(1.2-3.4)
Immature Gran % 1.0 H %
(0-0.5)
Neutrophils % 92.1 H %
(42.2-75.2)
Lymphocytes % 4.3 L %
(20.5-51.1)
Chloride 108 H mmol/L
(98-107)
BUN 33 H mg/dl
(7-17)
Ur Occult Blood Reflex 4+ A
(Negative)
Urine Nitrite (Reflex) Positive A
(Negative)
Leukocyte Esterase Rfl 3+ A
(Negative)
Urine RBC 16-20 A /HPF
(0-2)
Urine WBC (Reflex) >100 A /HPF
(0-5)
Urine Bacteria (Reflex) Many A
(Negative)
Urine Albumin (Reflex) 2+ A
(Neg - Trace)
02/18/25 20:47
02/18/25 20:47
Vital Signs
Initial and Last Documented VS:
Initial Vital Signs
Temp Pulse Resp BP Pulse Ox
98.2 F 61 20 130/60 96
02/18/25 20:38 02/18/25 20:38 02/18/25 20:38 02/18/25 20:38 02/18/25 20:38
Last Documented Vital Signs
Temp Pulse Resp BP Pulse Ox
98.4 F 63 17 118/45 97
02/18/25 22:54 02/19/25 00:45 02/19/25 00:45 02/19/25 00:00 02/19/25 00:30
*Radiology
Radiology exam reviewed: radiology read reviewed
*Pulse Oximetry
SaO2: 97
Oxygen Mode of Delivery: Room air
Patient hypoxic: no
*Critical Care Note
Total Time (30-74mins, 75-104mins- exclusive of procedures): Not Applicable
Update Note
Update Note:
Patient to ED with complaint of weakness and pain with urination. No fever/chills, n/v/d. Labs reviewed. UA concerning for UTI. Given dose of Monuril, IVF in ED. Patient feeling better after IV fluids. Will discharge home, close follow up with
PCP. Given instructions on s/s to return to ED and she is agreeable to plan. Urine culture pending.
ED Attending Note
-
Portions of this chart may have been created with voice recognition software.� Occasional wrong word or��sound alike� substitutions may have occurred due to the inherent limitations of voice recognition software.
Discharge Plan
Departure
Patient Disposition: Home (Routine Discharge)
Date of Disposition: 02/19/25
Time of Disposition: 00:31
Patient with high blood pressure during this ER visit?: No
Condition: Good
Covid-19: Not Applicable
Discharge Problem:
UTI (urinary tract infection)
Instructions: Urinary tract infections in adults
Prescriptions:
No Action
pantoprazole 40 MG tablet,delayed release (DR/EC)
40 mg PO DAILY
desvenlafaxine succinate 50 mg Tablet Extended Release 24 Hr
50 mg PO DAILY Qty: 0
potassium chloride [Klor-Con] 20 mEq Packet
20 meq PO BID
allopurinol 100 mg Tablet
200 mg PO DAILY
cyanocobalamin (vitamin B-12) 1,000 mcg Tablet
1,000 mcg PO DAILY
calcium carbonate-vitamin D3 600 mg-5 mcg (200 unit) Tablet
1 tab PO BID
simvastatin 20 mg Tablet
20 mg PO DAILY
cholecalciferol (vitamin D3) [Vitamin D3] 125 mcg (5,000 unit) Tablet
250 mcg PO DAILY
dexamethasone 4 mg Tablet
4 mg PO DIRECTED
Rx Instructions:
take before and after chemo treatment
amiodarone [Pacerone] 200 mg Tablet
400 mg PO BID 10 Days Qty: 40 0RF
Rx Instructions:
200mg tab (2 tabs twice daily for 10 days, then one tab daily)
Eliquis 5 mg Tablet
5 mg PO BID 30 Days Qty: 60 0RF
amiodarone 200 mg tablet
200 mg PO DAILY 30 Days Qty: 30 0RF
Rx Instructions:
start 200mg daily after completing 400mg BID x 10 days
furosemide 80 mg Tablet
80 mg PO DAILY PRN (Reason: Blood Pressure) Qty: 0 0RF
Rx Instructions:
weight gain or lower extremity edema
Referrals:
Didier Godinez Jr., DO [Family Provider, Internal Medicine]
Activity Restrictions/Additional Instructions:
Return to the emergency department for any changes in/worsening of your symptoms.
Interventions
Interventions:
*Risk Screen - Suicide Last Done: 02/18/25 20:38
*General Assessment Last Done: 02/18/25 20:38
*Neglect/Abuse Screening Last Done: 02/18/25 20:38
*ED- Fall Risk Assessment Last Done: 02/19/25 01:10
*ED COVID-19 Vaccine History Last Done: 02/18/25 23:29
*ED Influenza Vaccine History Last Done: 02/18/25 23:29
*Nursing Disposition Last Done: 02/19/25 01:10
WS-Rzxthp-Fgootqnuyy Assessment Last Done: 02/18/25 23:29
Discharge Date and Time
Discharge Date/Time: 02/19/25 01:10
Print Language: CAMEROONIAN
[2025-02-18 23:44] LABS: Urine Squamous Cell None seen /LPF (Few)
[2025-02-18 23:46] LABS: Urine White Cell >100 /HPF (0-5)
[2025-02-18 23:47] LABS: Urine Red Blood Cell 16-20 /HPF (0-2)
[2025-02-18] MEDS: NSS 1000 IV (23:53)
[2025-02-19] VITALS: BP 118/45
[2025-02-19] MEDS: MONUROL 3 GM PO (00:01)
== END 2025-02-19 01:10 | disposition home or self-care (01) ==
LOC: EMR 20:35
PROVIDERS: Emergency Medicine; EMERGENCY PHYSICIAN Student in an Organized Health Care Education/Training Program; FAMILY PHYSICIAN Family Medicine
DX: N39.0 Urinary tract infection, site not specified (principal); I10 Essential (primary) hypertension; C44.90 Unspecified malignant neoplasm of skin, unspecified; Z79.60 Long term (current) use of unspecified immunomodulators and immunosuppressants
CPT/HCPCS: 96360; 99284; 80053; 81003; 81015; 83605; 85025; 87077; 87086